=== PATIENT | female | born 1990 | race Hispanic/Latino ===

== ENCOUNTER 2018-02-21 12:39 | Inpatient (IN) | payer OTHER ==
[~2018-02-21] VITALS: Ht 157.5 cm; Wt 68.0 kg
[~2018-02-21 12:39] MED LIST: BACTROBAN15 GM TOP; CIPRO500 M1 PO; METFORMIN HCL500 M3 PO; PERCOCET 5-3251 EACH PO; VIBRAMYCIN100 MG PO
[2018-02-21 13:17] LABS: ABSOLUTE BASOPHIL COUNT 0 /CUMM (0.0-0.2); ABSOLUTE EOSINOPHIL COUNT 0 /CUMM (0.0-0.7); ABSOLUTE GRANULOCYTE CT 4.4 /CUMM (1.4-6.5); ABSOLUTE LYMPH COUNT 1.4 /CUMM (1.2-3.4); ABSOLUTE MONOCYTE COUNT 0.4 /CUMM (0.10-0.60); BASOPHIL % 0.4 % (0.0-2.0); EOSINOPHIL % 0.3 % (0-5); GRANULOCYTE % 69.5 % (42.2-75.2); HEMATOCRIT 29.9 % (37-47); MEAN CORPUSCULAR HGB 21.9 PG (27.0-31.0); MEAN CORPUSCULAR HGB CONC 32.3 G/DL (33.0-37.0); MEAN PLATELET VOLUME 7.8 FL (7.4-10.4); PLATELET COUNT 361 /CUMM (130-400); RBC DISTRIBUTION WIDTH 20.5 % (11.5-14.5); RED BLOOD CELL CT 4.41 /CUMM (4.20-5.40); WHITE BLOOD CELL COUNT 6.3 /CUMM (4.8-10.8)
[2018-02-21 13:34] LABS: MEAN CORPUSCULAR VOLUME 67.8 FL (81.0-99.0)
--- NOTE | 2018-02-21 14:40 | ED GENERAL ADULT ---
History of Present Illness General Chief Complaint: General Adult Stated Complaint: RIB/CHEST PAIN Source: patient Exam Limitations: no limitations (today a Ventolin. Basal cough) Vital Signs & Intake/Output Vital Signs & Intake/Output Vital Signs Date Time Temp Pulse Resp B/P B/P Pulse O2 O2 Flow FiO2 Mean Ox Delivery Rate 02/210 97.9 94 18 118/75 96 02/21 2220 99 Room Air 02/21 2207 99.0 70 17 111/663 100 Room Air 02/21 2044 98.2 66 18 106/63 99 Room Air 02/21 1658 99 02/21 1457 98.2 92 18 110/56 98 Room Air Room Air 02/21 1254 97.7 97 16 109/75 99 Room Air ED Intake and Output 02/22 0000 02/21 1200 Intake Total Output Total Balance Patient 150 lb Weight Weight Reported by Patient Measurement Method Allergies Coded Allergies: latex (HIVES, SWELLING, DYSPNEA 04/24/17) Reconcile Medications Metformin HCl 500 MG TABLET 1 TAB PO BID DM (Reported) Triage Note: PT STATES SHE IS HAVING PAIN IN HER LEFT SHOULDER INTO HER RIB CAGE. PT STATES INCREASED PAIN WHEN SHE BREATHS DEEP. PT IS NOT ON BC PILLS. PT DOES NOT REMEMBER INJURING HERSELF. PT STATES THIS BEGAN IN THE MORNING YESTERDAY BUT TODAY IT IS MUCH WORSE. Triage Nurses Notes Reviewed? yes Onset: Abrupt Duration: day(s): Timing: recent history : No Patient currently breastfeeds: No HPI: 02/21/18 3:30 PM 27-year-old female presents to the emergency department complaining of left sided pleuritic chest wall pain. According to the patient she's had left-sided pleuritic chest wall pain since . It is worse when she takes a deep breath. She does have a history of asthma. She states she is status post termination of and DC that was done at the end of January. Her urine test was positive. She denies any abdominal pain or vaginal bleeding. She is not on oral contraceptives. (Florentino Santos DO) Past History Travel History Traveled to [place] past 21 day No Medical History Any Pertinent Medical History? see below for history Neurological: NONE EENT: NONE Cardiovascular: NONE Respiratory: NONE Gastrointestinal: NONE Hepatic: NONE Renal: NONE Musculoskeletal: NONE Psychiatric: NONE Endocrine: NIDDM Surgical History Surgical History: non-contributory Psychosocial History What is your primary language Malaysian Tobacco Use: Never used ETOH Use: occasional use Illicit Drug Use: denies illicit drug use Family History Hx Contributory? No (Florentino Santos DO) Review of Systems Review of Systems Constitutional: Denies: fever. EENTM: Denies: visual changes. Respiratory: Denies: short of breath. Cardiovascular: Reports: see HPI. GI: Denies: abdominal pain. Genitourinary: Reports: no symptoms. Musculoskeletal: Reports: see HPI. Skin: Denies: rash. Neurological/Psychological: Reports: no symptoms. Hematologic/Endocrine: Reports: no symptoms. (Florentino Santos DO) Physical Exam Physical Exam General Appearance: well developed/nourished, alert, awake, anxious Head: atraumatic, normal appearance Eyes: Bilateral: normal appearance, PERRL, EOMI. Ears, Nose, Throat: normal pharynx, normal ENT inspection Neck: normal inspection, supple, full range of motion Respiratory: no respiratory distress, LEFT-SIDED CHEST WALL TENDERNESS Cardiovascular: regular rate/rhythm Peripheral Pulses: 4+ radial (R), 4+ radial (L) Gastrointestinal: soft, non-tender Rectal: heme negative stool Back: normal range of motion Extremities: no edema Neurologic/Psych: no motor/sensory deficits, awake, alert, oriented x 3 Skin: intact, normal color, warm/dry Core Measures ACS in differential dx? No CVA/TIA Diagnosis: No Sepsis Present: No Sepsis Focused Exam Completed? No (Florentino Santos DO) Progress Differential Diagnoses I considered the following diagnoses in my evaluation of the patient: [Pleurisy, costochondritis, pulmonary embolism, pneumothorax, pneumonia, asthma exacerbation] Plan of Care: Orders Procedure Date/time Status Nothing by Mouth 02/22 B Active Consistent Carbohydrate 1 02/21 D Complete Weight 02/21 2226 Active Vital Signs 02/21 2226 Active Teach/Educate 02/21 2226 Active Pain Treatment and Response 02/21 2226 Active Nutritional Intake, Monitor 02/21 2226 Active Isolation 02/21 2226 Active Intake & Output 02/21 2226 Active Patient Care Conference 02/21 2226 Active Activity/Ambulation 02/21 2226 Active ED Holding Orders 02/21 2058 Active Patient Data 02/21 2055 Active Saline Lock 02/21 2027 Active Misc Message 02/21 2027 Active ED Holding Orders 02/21 2027 Active Admit to inpatient 02/21 2027 Active Vital Signs 02/21 2027 Active Code Status 02/21 2027 Active PARTIAL THROMBOPLASTIN TIME 02/21 2010 Complete PROTHROMBIN TIME 02/21 2010 Complete Intake & Output 02/21 2006 Active Lab Add-on Test 02/21 2002 Active Add-on Test (ER Only) 02/21 1511 Active Add-on Test (ER Only) 02/21 1510 Active HUMAN BETA HCG TITRE 02/21 1303 Complete D-DIMER 02/21 1303 Complete B-TYPE NATRIURETIC PEP (BNP) 02/21 1303 Complete TROPONIN LEVEL 02/21 1259 Complete HUMAN BETA HCG SCREEN 02/21 1259 Complete COMPREHENSIVE METABOLIC PANEL 02/21 1259 Complete CBC WITHOUT DIFFERENTIAL 02/21 1259 Complete EKG 02/21 1240 Active FingerStick- Glucose 02/21 UNK Active MISSING MEDICATION FORM 02/21 UNK Active Current Medications Sig/Ashtyn Start time Last Medication Dose Stop Time Status Admin Insulin Aspart 0 TIDAC 02/22 0800 AC (NovoLOG) Apixaban 5 MG BID 02/21 2345 AC (Eliquis) Heparin Sodium 5,000 UNIT ONCE ONE 02/21 2100 CAN (Porcine) 02/21 2101 (Heparin Bolus) Laboratory Tests 02/21/18 2248: PT 12.1, INR 1.11, APTT 28 02/21/18 1303: Anion Gap 10, Estimated GFR > 60, BUN/Creatinine Ratio 15.7, Glucose 98, Calcium 9.3, Total Bilirubin 0.4, AST 17, ALT 19, Alkaline Phosphatase 63, Troponin I < 0.01, Cfh-C-Qtmmkukhhra Pept 50.7, Total Protein 7.7, Albumin 4.0, Globulin 3.7, Albumin/Globulin Ratio 1.1, Beta HCG, Quant 16.2, Total Beta HCG POSITIVE, D- Dimer High Sensitivty 637 H, CBC w Diff NO MAN DIFF REQ, RBC 4.41, MCV 67.8 L, MCH 21.9 L, MCHC 32.3 L, RDW 20.5 H, MPV 7.8, Gran % 69.5, Lymphocytes % 22.9 , Monocytes % 6.9, Eosinophils % 0.3, Basophils % 0.4, Absolute Granulocytes 4.4 , Absolute Lymphocytes 1.4, Absolute Monocytes 0.4, Absolute Eosinophils 0, Absolute Basophils 0 PATIENT: SAUL LOVELACE PRESENT AGE: 27 PATIENT ACCOUNT NO: [id number] : 90 LOCATION: [facility] ORDERING PHYSICIAN: Florentino Santos DO SERVICE DATE: 02/21/18 EXAM TYPE: CAT - CTA CHEST-PULMONARY EMBOLISM EXAMINATION: CT ANGIOGRAM OF THE CHEST WITH AND WITHOUT CONTRAST (CT PULMONARY ANGIOGRAM FOR PE) CLINICAL INFORMATION: Reason for Study:
Presumptive Dx: SOB, CP, ELEVATED DIMER
Signs Symptoms: + PREG SECONDAY TO RECENT TOP DONE END OF JANUARY
COMPARISON: None TECHNIQUE: Prior to contrast administration, noncontrast localization images were obtained. Subsequently, multidetector volumetric imaging was performed from the thoracic inlet to below the diaphragms following the administration of 80 mL Omnipaque 350 intravenous contrast. No contrast reaction reported. Sagittal, coronal, and MIP oblique sagittal reformatted images were obtained on the CT workstation, uploaded to PACS, and reviewed. Total exam dose-length product 258 mGy-cm. FINDINGS: QUALITY OF STUDY/CONTRAST BOLUS: Satisfactory PULMONARY ARTERIES: There is a moderate amount of clot present within the left lower lobe interlobar artery and distal branches in the posterior left lower lobe. No additional thrombus present. THORACIC AORTA: No aneurysm or dissection. LUNG: There is a focal area of pleural-based consolidation in the lingula which may reflect atelectasis. PLEURA: There is a small left pleural effusion. MEDIASTINUM: Normal heart size. No pericardial effusion. No hilar or mediastinal lymphadenopathy. No evidence of septal bowing or right heart strain. CHEST WALL/AXILLA: No axillary or internal mammary lymphadenopathy. OSSEOUS STRUCTURES: No acute or suspicious osseous abnormality. UPPER ABDOMEN: Unremarkable. No reflux of contrast into the hepatic veins to suggest elevated right heart pressures. IMPRESSION: Pulmonary embolism with clot present within the left lower lobe interlobar artery left lower lobe and distal posterior branches. Small left pleural effusion. Focal opacity pleural-based lingula likely atelectasis VTE: positive This critical result was discussed with Florentino mabry at approximately 7: 25 PM on 02/21/2018 and it was ascertained that the content and urgency of the report was understood at the time of direct communication. DICTATED BY: Bravo Salinas MD DATE/TIME DICTATED:02/21/181910 MAINTENANCE AND CUSTODIAN SUPERVISOR:ABNER DATE/TIME TRANSCRIBED:02/21/181910 CONFIDENTIAL, DO NOT COPY WITHOUT APPROPRIATE AUTHORIZATION. <Electronically signed in Other Vendor System> SIGNED BY: Bravo Salinas MD 02/21 Initial ED EKG: NSR, nonspecific ST T wave chg (Florentino Santos DO) Diagnostic Imaging: Viewed by Me: CT Scan. Discussed w/RAD: CT Scan. Radiology Impression: PATIENT: SAUL LOVELACE PRESENT AGE: 27 PATIENT ACCOUNT NO: [id number] : 90 LOCATION: [facility] ORDERING PHYSICIAN: Florentino Santos DO SERVICE DATE: 02/21/18 EXAM TYPE: CAT - CTA CHEST-PULMONARY EMBOLISM EXAMINATION: CT ANGIOGRAM OF THE CHEST WITH AND WITHOUT CONTRAST (CT PULMONARY ANGIOGRAM FOR PE) CLINICAL INFORMATION: Reason for Study:
Presumptive Dx: SOB, CP, ELEVATED DIMER
Signs Symptoms: + PREG SECONDAY TO RECENT TOP DONE END OF JANUARY
COMPARISON: None TECHNIQUE: Prior to contrast administration, noncontrast localization images were obtained. Subsequently, multidetector volumetric imaging was performed from the thoracic inlet to below the diaphragms following the administration of 80 mL Omnipaque 350 intravenous contrast. No contrast reaction reported. Sagittal, coronal, and MIP oblique sagittal reformatted images were obtained on the CT workstation, uploaded to PACS, and reviewed. Total exam dose-length product 258 mGy-cm. FINDINGS: QUALITY OF STUDY/CONTRAST BOLUS: Satisfactory PULMONARY ARTERIES: There is a moderate amount of clot present within the left lower lobe interlobar artery and distal branches in the posterior left lower lobe. No additional thrombus present. THORACIC AORTA: No aneurysm or dissection. LUNG: There is a focal area of pleural-based consolidation in the lingula which may reflect atelectasis. PLEURA: There is a small left pleural effusion. MEDIASTINUM: Normal heart size. No pericardial effusion. No hilar or mediastinal lymphadenopathy. No evidence of septal bowing or right heart strain. CHEST WALL/AXILLA: No axillary or internal mammary lymphadenopathy. OSSEOUS STRUCTURES: No acute or suspicious osseous abnormality. UPPER ABDOMEN: Unremarkable. No reflux of contrast into the hepatic veins to suggest elevated right heart pressures. IMPRESSION: Pulmonary embolism with clot present within the left lower lobe interlobar artery left lower lobe and distal posterior branches. Small left pleural effusion. Focal opacity pleural-based lingula likely atelectasis VTE: positive This critical result was discussed with Florentino mabry at approximately 7: 25 PM on 2017 and it was ascertained that the content and urgency of the report was understood at the time of direct communication. DICTATED BY: Bravo Salinas MD DATE/TIME DICTATED:02/21/181910 MAINTENANCE AND CUSTODIAN SUPERVISOR:ABNER DATE/TIME TRANSCRIBED:02/21/181910 CONFIDENTIAL, DO NOT COPY WITHOUT APPROPRIATE AUTHORIZATION. <Electronically signed in Other Vendor System> SIGNED BY: Bravo Salinas MD 02/21/181928 (Jaylin LIVE,Rafiq Gonzalez) Departure Departure Disposition: STILL A PATIENT Condition: Stable Clinical Impression Primary Impression: Pulmonary embolism Referrals: Unknown (PCP/Family) Departure Forms: Customer Survey General Discharge Information Admission Note Spoke With: Alonso Flores MD Documentation of Exam: Documentation of any treatments & extenuating circumstances including Concerns Regarding Discharge (functional status, medication knowledge or non-compliance, living conditions, etc.) that warrant an admission rather than observation: [The patient needs admission for IV pain medication, anticoagulation, pulmonary consultation] (Florentino Santos DO) Departure Comments pt admitted prior to my taking over care of patient. (Jaylin LIVE,Rafiq Gonzalez) Critical Care Note Critical Care Note Critical Care Time: non-applicable (Florentino Santos DO) ED Attending Observation Initial Observation Note: I have seen and personally examined SAUL LOVELACE on 02/21/18 at 2048. I agree with the current emergency department documentation. The disposition (admission or discharge) is uncertain at this time, she needs a period of observation for the following reason(s): The ED Nurse caring for this patient has been personally informed as to what the patient is being observed for. (Florentino Santos DO)
--- NOTE | 2018-02-21 18:28 | ULTRASOUND REPORT ---
EXAMINATION: US TRANSVAGINAL CLINICAL INFORMATION: History of dilatation and curettage. Recent vaginal bleeding. Evaluate for retained products of conception. COMPARISON: None TECHNIQUE: Sonographic imaging of the pelvis was performed using transabdominal and transvaginal transducers. FINDINGS: The uterus, which is slightly retroflexed, measures 6.6 cm long, 5.7 cm AP and 6.3 cm transverse. The myometrial echotexture is normal. No evidence of uterine leiomyoma. The endometrium has a normal appearance; it measures up to 7-8 mm AP. No endometrial mass or fluid collection. The cervical canal is normal and measures 3 cm in length. The ovaries are normal. The right ovary measures 2.9 x 2 x 2.8 cm, volume of 8.2 mL. The left ovary measures 2 x 2.9 x 2 cm, volume of 6.3 mL.. Color Doppler images show presence of arterial flow within each ovary. No free fluid in the pelvic cul-de-sac. IMPRESSION: The uterus and ovaries have a normal appearance. No evidence of retained products of conception.
--- NOTE | 2018-02-21 19:29 | CT SCAN REPORT ---
EXAMINATION: CT ANGIOGRAM OF THE CHEST WITH AND WITHOUT CONTRAST (CT PULMONARY ANGIOGRAM FOR PE) CLINICAL INFORMATION: Reason for Study:
Presumptive Dx: SOB, CP, ELEVATED DIMER
Signs Symptoms: + PREG SECONDAY TO RECENT TOP DONE END OF JANUARY
COMPARISON: None TECHNIQUE: Prior to contrast administration, noncontrast localization images were obtained. Subsequently, multidetector volumetric imaging was performed from the thoracic inlet to below the diaphragms following the administration of 80 mL Omnipaque 350 intravenous contrast. No contrast reaction reported. Sagittal, coronal, and MIP oblique sagittal reformatted images were obtained on the CT workstation, uploaded to PACS, and reviewed. Total exam dose-length product 258 mGy-cm. FINDINGS: QUALITY OF STUDY/CONTRAST BOLUS: Satisfactory PULMONARY ARTERIES: There is a moderate amount of clot present within the left lower lobe interlobar artery and distal branches in the posterior left lower lobe. No additional thrombus present. THORACIC AORTA: No aneurysm or dissection. LUNG: There is a focal area of pleural-based consolidation in the lingula which may reflect atelectasis. PLEURA: There is a small left pleural effusion. MEDIASTINUM: Normal heart size. No pericardial effusion. No hilar or mediastinal lymphadenopathy. No evidence of septal bowing or right heart strain. CHEST WALL/AXILLA: No axillary or internal mammary lymphadenopathy. OSSEOUS STRUCTURES: No acute or suspicious osseous abnormality. UPPER ABDOMEN: Unremarkable. No reflux of contrast into the hepatic veins to suggest elevated right heart pressures. IMPRESSION: Pulmonary embolism with clot present within the left lower lobe interlobar artery left lower lobe and distal posterior branches. Small left pleural effusion. Focal opacity pleural-based lingula likely atelectasis VTE: positive This critical result was discussed with Florentino mabry at approximately 7: 25 PM on 02/21/2018 and it was ascertained that the content and urgency of the report was understood at the time of direct communication.
--- NOTE | 2018-02-21 20:56 | History & Physical ---
Farhad Zelaya 02/21/182054: General Information and HPI History of Present Illness: Ms. Coley is a 27-year-old F, A2 with a PMH of asthma, NIDDM, miscarriage at the age of 17 and a recent D&C at 10 weeks gestation who presents to the ED with left chest pain for 2 days. Patient reports yesterday she felt left-sided chest pain that wrapped underneath her L breast, 9.5/10 in severity. Her pain is exacerbated by deep breathing. She recorded a Tmax of 101. She also reports vaginal bleeding for the last 4 days that required pads every 2 hours. She had an elective dilatation and curettage done 2-3 weeks ago at 10 weeks gestation that did not require any pharmacological treatment. Subsequently she had limited movement for the following 1-1/2 weeks. She saw her DIRECTOR OF GRANTS-Dr. Coffman in [place] for a follow-up appointment with no noted complications. 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 She is currently not on oral contraceptives but use them as a teenager for menses regulation. She denies recent travel, sick contacts, calf tenderness, nausea, vomiting, abdominal pain, lightheadedness, palpitations, urinary or bowel symptoms. In the ED she received IV morphine and 1L NS IVF Allergies/Medications Allergies: Coded Allergies: latex (HIVES, SWELLING, DYSPNEA 04/24/17) Home Med list Metformin HCl 500 MG TABLET 1 TAB PO BID DM (Reported) Past History Travel History Traveled to [place] past 21 day No Medical History Neurological: NONE EENT: NONE Cardiovascular: NONE Respiratory: NONE Gastrointestinal: NONE Hepatic: NONE Renal: NONE Musculoskeletal: NONE Psychiatric: NONE Endocrine: NIDDM Surgical History Surgical History: non-contributory Past Family/Social History Psychosocial History ETOH Use: occasional use Illicit Drug Use: denies illicit drug use Review of Systems Review of Systems Constitutional: Reports: see HPI. Exam & Diagnostic Data Last 24 Hrs of Vital Signs/I&O Vital Signs Date Time Temp Pulse Resp B/P B/P Pulse O2 O2 Flow FiO2 Mean Ox Delivery Rate 02/22 0654 97.8 55 18 112/50 100 Room Air 02/22 0000 Room Air 02/21 2230 97.9 94 18 118/75 96 02/21 2220 99 Room Air 02/21 2207 99.0 70 17 111/663 100 Room Air 02/21 2044 98.2 66 18 106/63 99 Room Air 02/21 1658 99 02/21 1457 98.2 92 18 110/56 98 Room Air Room Air 02/21 1254 97.7 97 16 109/75 99 Room Air Intake & Output 02/22 0800 02/22 0000 02/21 1600 Intake Total 240 Output Total Balance 240 Intake, Oral 240 Patient 150 lb 150 lb Weight Weight Reported by Patient Measurement Method Physical Exam General Appearance Alert, Oriented X3, Cooperative, No Acute Distress HEENT Atraumatic, PERRLA, EOMI, Mucous Membr. moist/pink Cardiovascular Regular Rate, Normal S1, Normal S2 Lungs Decreased breath sounds Abdomen Normal Bowel Sounds, Soft, No Tenderness Extremities No Edema Vascular Normal Pulses Last 24 Hrs of Labs/Timothy: Laboratory Tests 02/21/18 2248: PT 12.1, INR 1.11, APTT 28 02/21/18 1303: Anion Gap 10, Estimated GFR > 60, BUN/Creatinine Ratio 15.7, Glucose 98, Calcium 9.3, Total Bilirubin 0.4, AST 17, ALT 19, Alkaline Phosphatase 63, Troponin I < 0.01, Lfp-X-Xopdtfpcedb Pept 50.7, Total Protein 7.7, Albumin 4.0, Globulin 3.7, Albumin/Globulin Ratio 1.1, Beta HCG, Quant 16.2, Total Beta HCG POSITIVE, D- Dimer High Sensitivty 637 H, CBC w Diff NO MAN DIFF REQ, RBC 4.41, MCV 67.8 L, MCH 21.9 L, MCHC 32.3 L, RDW 20.5 H, MPV 7.8, Gran % 69.5, Lymphocytes % 22.9 , Monocytes % 6.9, Eosinophils % 0.3, Basophils % 0.4, Absolute Granulocytes 4.4 , Absolute Lymphocytes 1.4, Absolute Monocytes 0.4, Absolute Eosinophils 0, Absolute Basophils 0 Diagnostic Data EKG Results SR, HR 87, QTc 433 Assessment/Plan Assessment: Ms. Coley is a 27-year-old F, A2 with a PMH of asthma, NIDDM, miscarriage at the age of 17 and a recent D&C at 10 weeks gestation who presents to the ED with left chest pain for 2 days. CTA revealed a left lower lobe and distal posterior branches pulmonary embolism with small left pleural effusion #Provoked LLL PE in the setting of recent and immobility #Positive HCG with no retained products of conception on TVUS #Anemia Plan: Admit to general med for further evaluation and management Based on her PESI score she has a very low risk of mortality (0-1.6% 30 day mortality) We will start her on apixaban 5 mg BID Iron supplementation Accu-Cheks and NovoLog sliding scale Repeat beta-hCG Ferritin, Fe, TIBC PT/INR, PTT Monitor H&H Pain: Oxycodone/acetaminophen, ibuprofen, acetaminophen Diet: Diabetic DVT ppx: Apixaban Code: Full As Ranked By This Provider Problem List: 1. Pulmonary embolism Core Measures/Misc (05/26) Acute Coronary Syndrome ACS Diagnosis: No Congestive Heart Failure Congestive Heart Failure Diagnosis No Cerebrovascular Accident CVA/TIA Diagnosis: No VTE (View Protocol) VTE Risk Factors / No Mechanical VTE Prophylaxis d/t N/A MechProphylax Ordered No VTE Pharm Prophylaxis d/t NA PharmProphylax ordered Sepsis (View protocol) Sepsis Present: No If YES complete Sepsis Event Note If YES complete Sepsis Event Note [facility] 02/22/18 0136: Core Measures/Misc (05/26) Sepsis (View protocol) If YES complete Sepsis Event Note If YES complete Sepsis Event Note Resident Review Statement Resident Statement: examined this patient, discussed with agronomy internship, agreed with agronomy internship Other Findings: This is a 27-year-old female with past medical history significant for asthma, type 2 diabetes diagnosed at age 16, who comes in for chief complaint of left sided chest pain. She says that the pain came on suddenly yesterday and is a 9.5 out of 10 stabbing pain that gets worse with deep inspiration. She denies any trauma or similar symptoms previously. She does endorse MAXIMUM TEMPERATURE 101 with chills at home. Denies nausea vomiting abdominal pain or lower extremity swelling. She had a D&C procedure done about 3 weeks ago. At that time she was 10 weeks . She states she took the week after the D&C "to rest." However she states that she was not entirely bedridden. In the past 2 weeks she has largely gone back to her usual routine. She has had vaginal bleeding the last 4 days. She states that it seems like her regular menses and she changes pads every 2 hours. She does not use tampons. She saw her OB 2 weeks ago and was apparently told that she was in good health. Denies any hormonal contraception since she was a teenager. Social history pertinent for occasional use of wine, no smoking or drugs. Surgical history pertinent for 4 C-sections and D&C in 2006 and a D&C 3 weeks ago. She has allergies to latex. Her only meds are albuterol and metformin. She occasionally uses ibuprofen for pain. She states that she has always been anemic but cannot offer further details. See above for physical exam Vitals: 97.7, 96-66, 17, 106/63-118/75, 99% on room air. Hemoglobin 9.6, hematocrit 29.9, MCV 67. D-dimer 637. Normal PT and PTT. Quantitative hCG 16.2. test positive. Nml BNP. Nml LFT. Nml troponin. Trans-vaginal ultrasound shows no evidence of retained conceptus. CTA shows pulmonary embolus with clot present in the left lower lobe interlobar artery left lower lobe and distal posterior branches and a small left pleural effusion. There is no reflux of contrast in the hepatic veins pericardial effusion, or evidence of septal bowing or right heart strain ASSESSMENT: This is a 27 yo female with PMH of DM and asthma, who had recent D&C procedure 3 wks ago, who comes in with CC of pleuritic chest pain and found to have mod sized pulmonary embolus on CAT scan. Her PESI score is 27 placing her in Class I, very low risk; 0.1-1.6% 30 day mortality. Most likely etiology of PE is recent surgical procedure and terminaton of with elevated lvl of estrogen, endothelial damage and infusion of prostaglandins to aid in procedure. Would likely label this a provoked episode, though she has had 5 normal pregnancies without any hypercoag complicaitons. PLAN: 1. PE: Given her very low PESI score, start patient on DOAC; no acute intervention planned. * Eliquis 10 mg BID * Check PT and PTT * Consider pulmonology input * Follow-up outpatient * We will defer hypercoagulability workup at this time 2. Anemia: Patient's hemoglobin 9.6 and hematocrit 29.9. She states that she is on her period at this time. Likely some blood loss from the D&C procedure as well. She states that she is "always anemic." She does have Mediterranean background and given MCV 67, differential includes iron deficiency anemia, thalassemia, or hemolysis. * Iron studies * Start iron supplementation depending on studies 3. Diabetes: * Consistent carb diet * Fingerstick * Regular Insulin sliding scale * Hold metformin 4. Recent D&C: * Follow-up outpatient Full code Anthony for prophylaxis Consistent carb diet Alonso Flores 02/22/18 0429: Core Measures/Misc (05/26) Sepsis (View protocol) If YES complete Sepsis Event Note If YES complete Sepsis Event Note Attending MD Review Statement Attending Statement Attending MD Statement: examined this patient, discuss w/resident/PA/TECHNOLOGY COORDINATOR, agreed w/resident/PA/TECHNOLOGY COORDINATOR, reviewed EMR data (avail), reviewed images, amended to note Attending Assessment/Plan: CC: Left sided chest pain PMH: DM on metformin patient came to ER for left-sided chest pain that started yesterday at rest, radiating to her left shoulder, associated with deep breathing, no trauma, started at rest. She Denies any palpitation, dizziness, double vision, blurry vision. She recently underwent elective D&C for . After the procedure she was resting at home for at least one and half week but did not notice any cough pain, swelling or the redness. Denies any oral contraceptive use. Patient also complains of excessive vaginal bleeding since last 4 days. Vitals: Temperature 97.7, pulse 97, RR 16, blood pressure 110/56, saturating 99% on room air On exam: A O 3, cooperative, no acute distress, neck supple, JVD normal, no lymphadenopathy, mucosa moist, no focal neurological deficit, no dependent edema , no obvious skin rashes or inflammation CVS: S1-S2, RRR. RS: Clear to auscultate bilaterally. Abdomen: Soft, NT, ND, bowel sounds present. CTA chest: Pulmonary embolism with clot present within the left lower lobe interlobar artery left lower lobe and distal posterior branches. Small left pleural effusion. Focal opacity pleural-based lingula likely atelectasis Transvaginal ultrasound: The uterus and ovaries have a normal appearance. No evidence of retained products of conception. Assessment and plan 27-year-old female with past medical history significant for diabetes came to ER for a one-day duration of chest pain left-sided radiating to left shoulder. Her d-dimer was elevated. Examination unremarkable but her beta hCG was positive so quantitative analysis was obtained which is unremarkable. She also underwent transvaginal ultrasound to exclude any after that she underwent CTA and was found to have pulmonary embolism. This could be provoked as she was taking rest after her recent dilatation and curettage procedure and mostly sedentary for one and half week. Given her low risk of PE, no evidence of cardiac strain we will continue oral Eliquis needs outpatient follow-up. Of note patient also has excessive vaginal bleeding since last 4 days. No history suggestive of lupus or antiphospholipid syndrome. + Left lower lobe interlobar artery pulmonary embolism + Anemia probably secondary to postprocedure and excessive current vaginal + History of DM - Admit to general medicine - Adequate pain control - Continue Eliquis - Continue sliding scale insulin while in hospital - Check PT/PTT INR - Check beta hCG titers tomorrow morning to trend down in appropriate direction - Iron studies, TIBC, ferritin, reticulocyte count - Continue iron supplementation
[2018-02-21 22:30] VITALS: BP 118/75
[2018-02-21 23:07] LABS: PT 12.1 SEC (9.4-12.5); PTT 28 SEC (25-37)
--- NOTE | 2018-02-22 04:43 | Admission Certification ---
Admission Certification Certification Statement - As attending physician, I certify that at the time of - admission, based on clinical presentation, severity of - symptoms, need for further diagnostic testing and - therapeutic interventions, and risk of adverse outcomes - without in-hospital treatment, in my clinical assessment, - this patient requires an acute hospital stay for a minimum - of two nights or longer. I have also considered psychsocial - factors such as support system, advanced age, financial - issues, cognitive issues, and failed out-patient treatments, - past re-admission history, safety of patient, and lack of - compliance as applicable. Specific rationale supporting this admission is: Pulmonary embolism
[2018-02-22 06:54] VITALS: BP 112/50
[2018-02-22 08:29] LABS: PTT 32 SEC (25-37)
--- NOTE | 2018-02-22 08:41 | PN- Housestaff ---
Brian LIVE,Jose Enrique 02/22/18 0840: Subjective Follow-up For: pulmonary embolism acute blood loss anemia Subjective: patient complains of a pleuritic left sided chest pain Review of Systems Constitutional: Reports: see HPI. Objective Last 24 Hrs of Vital Signs/I&O Vital Signs Date Time Temp Pulse Resp B/P B/P Pulse O2 O2 Flow FiO2 Mean Ox Delivery Rate 02/22 1100 Room Air 02/22 0800 96 Room Air 02/22 0654 97.8 55 18 112/50 100 Room Air 02/22 0000 Room Air 02/21 2230 97.9 94 18 118/75 96 02/21 2220 99 Room Air 02/21 2207 99.0 70 17 111/663 100 Room Air 02/21 2044 98.2 66 18 106/63 99 Room Air 02/21 1658 99 02/21 1457 98.2 92 18 110/56 98 Room Air Room Air Intake & Output 02/22 1600 02/22 0800 02/22 0000 Intake Total 240 Output Total Balance 240 Intake, Oral 240 Patient 68.039 kg Weight Physical Exam General Appearance: Alert, Oriented X3, Cooperative, No Acute Distress Cardiovascular: Regular Rate, Normal S1, Normal S2, No Murmurs Lungs: Clear to Auscultation, Normal Air Movement Abdomen: Normal Bowel Sounds, Soft, No Tenderness, No Masses Extremities: No Clubbing, No Cyanosis, No Edema, Normal Pulses Current Medications: Current Medications Sig/Ashtyn Start time Last Medication Dose Route Stop Time Status Admin Acetaminophen 650 MG Q6P PRN 02/22 0015 AC PO Albuterol Sulfate 3 ML BID 02/22 2100 AC 02/22 INH 1100 Albuterol Sulfate 3 ML ONCE ONE 02/21 1630 DC 02/21 INH 02/21 1631 1648 Apixaban 10 MG BID 02/22 2100 AC PO Apixaban 5 MG BID 02/21 2345 DC 02/22 PO 0851 Ferrous Sulfate 325 MG DAILY 02/22 0900 AC 02/22 PO 0851 Heparin Sodium 0 .STK-MED ONE 02/21 2105 DC (Porcine) .ROUTE Heparin Sodium 5,000 UNIT ONCE ONE 02/21 2100 CAN (Porcine) IV 02/21 210 Heparin Sodium 25,000 UNIT Q24H 02/21 2100 DC (Porcine) IV Sodium Chloride 500 ML Ibuprofen 600 MG Q6P PRN 02/22 0015 AC 02/22 PO 0900 Ibuprofen 0 .STK-MED ONE 02/21 1505 DC PO Insulin Aspart 0 TIDAC 02/22 0800 AC SC Ipratropium [place] 2.5 ML ONCE ONE 02/21 1630 DC 02/21 INH 02/21 1631 1648 Ketorolac 15 MG ONCE ONE 02/21 2245 DC 02/21 Tromethamine IV 02/21 2246 2305 Morphine Sulfate 0 .STK-MED ONE 02/21 2106 DC .ROUTE Morphine Sulfate 4 MG ONCE ONE 02/21 2100 DC 02/21 IV 02/21 2101 2111 Ondansetron HCl 4 MG Q6P PRN 02/22 0930 AC IV Oxycodone/ 2 TAB Q6P PRN 02/22 0015 AC 02/22 Acetaminophen PO 1133 Oxycodone/ 0 .STK-MED ONE 02/21 1654 DC Acetaminophen PO Oxycodone/ 1 TAB ONCE ONE 02/21 1645 DC 02/21 Acetaminophen PO 02/21 1646 1656 Sodium Chloride 1,000 ML BOLUS ONE 02/21 1630 DC 02/21 IV 02/21 1729 1637 Last 24 Hrs of Lab/Timothy Results Last 24 Hrs of Labs/Mics: Laboratory Tests 02/22/18 0913: Beta HCG, Quant 13.4 02/22/18 0635: Anion Gap 12, Estimated GFR > 60, BUN/Creatinine Ratio 12.9, Iron 27 L, TIBC 418, Ferritin 4.8 L, PT 15.0 H, INR 1.37 H, APTT 32, CBC w Diff NO MAN DIFF REQ, RBC 3.90 L, MCV 68.3 L, MCH 21.8 L, MCHC 31.9 L, RDW 20.3 H, MPV 8.4, Gran % 63.3, Lymphocytes % 27.9, Monocytes % 7.6, Eosinophils % 0.6, Basophils % 0.6, Absolute Granulocytes 5.1, Absolute Lymphocytes 2.3, Absolute Monocytes 0.6 , Absolute Eosinophils 0, Absolute Basophils 0, Retic Count 2.67 H 02/21/182247: PT 12.1, INR 1.11, APTT 28 Assessment/Plan Assessment: 27 year old female A2 with a PMH of asthma, NIDDM, miscarriage at the age of 17 and a recent D+C at 10 weeks gestation who presents to the ED with left sided pleuritic chest pain for 2 days. CTA revealed a left lower lobe and distal posterior branches pulmonary embolism with small left pleural effusion. Provoked LLL PE in the setting of recent and immobility Eliquis 10mg PO BID x 7 days then 5mg PO BID Outpatient hematology referral for hypercoagulable workup Check bilateral lower extremity venous doppler ultrasound Oral analgesics for pleuritic chest pain TRC evaluation for history of asthma Positive HCG: No retained products of conception on TVUS HCG trending down OBGYN consultation Anemia: microcytic Likely acute blood loss anemia from recent surgery and chronic iron deficiency anemia Ferritin low, start oral iron supplementation Trend CBC with initiation of anticoagulation DM: Accuchecks TIDAC Novolog sliding scale insulin Diabetic diet DVT ppx-on eliquis Full code Problem List: 1. Pulmonary embolism 2. Chest wall pain Pain Ratin Pain Location: left chest Pain Goal: Pain 4 or less Pain Plan: prn Tomorrow's Labs & Rationales: cbc Maciej Carranza MD 02/22/18 1339: Attending MD Review Statement Attending Statement Attending MD Statement: examined this patient, discuss w/resident/PA/HEAD BOYS TENNIS COACH, agreed w/resident/PA/HEAD BOYS TENNIS COACH, discussed with family, reviewed EMR data (avail), discussed with nursing, discussed with case mgmt, reviewed images, amended to note Attending Assessment/Plan: Impression 27 year old woman * PE - LLL interlobar artery and LLL distal posterior branches * recent elective termination of , hx of miscarriage * anemia Plan -knitted goods shaper consultation, continued anemia/bleeding -continue with eliquis, dose adjusted to 10mg po bid x 7 days then needs to be on 5mg po bid -PFTs as outpt, hx of asthma, can follow up with myself -LE dopplers -outpatient hypercoagulable panel will be obtained and a hematology evaluation on an outpatient basis -IST - Incentive Spirometry -TRC/Nebs -pleuritic chest pain is controlled with percocet
[2018-02-22 08:56] LABS: ABSOLUTE BASOPHIL COUNT 0 /CUMM (0.0-0.2); ABSOLUTE EOSINOPHIL COUNT 0 /CUMM (0.0-0.7); ABSOLUTE GRANULOCYTE CT 5.1 /CUMM (1.4-6.5); ABSOLUTE LYMPH COUNT 2.3 /CUMM (1.2-3.4); ABSOLUTE MONOCYTE COUNT 0.6 /CUMM (0.10-0.60); BASOPHIL % 0.6 % (0.0-2.0); EOSINOPHIL % 0.6 % (0-5); GRANULOCYTE % 63.3 % (42.2-75.2); HEMATOCRIT 26.6 % (37-47); MEAN CORPUSCULAR HGB 21.8 PG (27.0-31.0); MEAN CORPUSCULAR HGB CONC 31.9 G/DL (33.0-37.0); MEAN CORPUSCULAR VOLUME 68.3 FL (81.0-99.0); MEAN PLATELET VOLUME 8.4 FL (7.4-10.4); PLATELET COUNT 329 /CUMM (130-400); RBC DISTRIBUTION WIDTH 20.3 % (11.5-14.5); WHITE BLOOD CELL COUNT 8.1 /CUMM (4.8-10.8)
--- NOTE | 2018-02-22 14:21 | ULTRASOUND REPORT ---
EXAMINATION: US TRIPLEX OF LOWER EXTREMITIES, BILATERAL CLINICAL INFORMATION: Postoperative D\T\C, PE on CTA COMPARISON: None TECHNIQUE: Color-flow triplex imaging with spectral analysis and compression Doppler were performed on the lower extremities. FINDINGS: Respiratory variation, normal compression and augmented flow are noted throughout the lower extremities. The visualized common femoral vein, superficial femoral vein, profunda femoral vein, popliteal vein and midcalf peroneal and posterior tibial venous segments show no evidence of deep venous thrombosis. There is a left popliteal fossa fluid collection that measures 2.6 x 0.5 x 1.0 cm most consistent with a Rowley's cyst. IMPRESSION: No evidence of deep venous thrombosis involving the bilateral lower extremities.
[2018-02-22 14:50] VITALS: BP 99/55
[2018-02-22 21:44] VITALS: BP 101/51
[2018-02-23 01:10] VITALS: BP 124/76
[2018-02-23 06:40] VITALS: BP 100/56
[2018-02-23 08:54] LABS: ABSOLUTE BASOPHIL COUNT 0 /CUMM (0.0-0.2); ABSOLUTE EOSINOPHIL COUNT 0 /CUMM (0.0-0.7); ABSOLUTE GRANULOCYTE CT 3.7 /CUMM (1.4-6.5); ABSOLUTE LYMPH COUNT 2.1 /CUMM (1.2-3.4); ABSOLUTE MONOCYTE COUNT 0.5 /CUMM (0.10-0.60); BASOPHIL % 0.7 % (0.0-2.0); EOSINOPHIL % 0.4 % (0-5); GRANULOCYTE % 57.4 % (42.2-75.2); HEMATOCRIT 25.1 % (37-47); MEAN CORPUSCULAR HGB 21.6 PG (27.0-31.0); MEAN CORPUSCULAR HGB CONC 31.9 G/DL (33.0-37.0); MEAN CORPUSCULAR VOLUME 67.8 FL (81.0-99.0); MEAN PLATELET VOLUME 8.1 FL (7.4-10.4); PLATELET COUNT 299 /CUMM (130-400); RBC DISTRIBUTION WIDTH 19.9 % (11.5-14.5); WHITE BLOOD CELL COUNT 6.4 /CUMM (4.8-10.8)
--- NOTE | 2018-02-23 09:43 | PN- Housestaff ---
Kelsea LIVE,Blaire 02/23/18 0941: Subjective Follow-up For: pulmonary embolism acute blood loss anemia s/p D&C Subjective: Patient seen and examined. Patient complains of pain with deep breathing. Mostly along left side of chest and along back. Reports breathing treatments and pain meds help the pain. No acute events overnight. Review of Systems Constitutional: Reports: see HPI. Objective Last 24 Hrs of Vital Signs/I&O Vital Signs Date Time Temp Pulse Resp B/P B/P Pulse O2 O2 Flow FiO2 Mean Ox Delivery Rate 02/23 0640 98.4 87 16 100/56 97 Room Air 02/23 0111 95 Room Air 02/23 0110 98.1 96 18 124/76 95 Room Air 02/22 2144 98.8 90 18 101/51 94 02/22 1840 99 Room Air 02/22 1450 97.9 80 18 99/55 80 02/22 1100 Room Air Intake & Output 02/23 1600 02/23 0800 02/23 0000 Intake Total 300 200 Output Total Balance 300 200 Intake, Oral 300 200 Physical Exam General Appearance: Alert, Oriented X3, Cooperative, No Acute Distress Skin Temp/Moisture Exam: Warm/Dry HEENT: Atraumatic, Mucous Membr. moist/pink Cardiovascular: Regular Rate, Normal S1, Normal S2 Lungs: Clear to Auscultation, Normal Air Movement Abdomen: Normal Bowel Sounds, Soft, No Tenderness Neurological: Normal Speech, Cranial Nerves 3-12 NL Current Medications: Current Medications Sig/Ashtyn Start time Last Medication Dose Route Stop Time Status Admin Acetaminophen 650 MG Q6P PRN 02/22 0015 AC PO Albuterol Sulfate 3 ML BID 02/22 2100 AC 02/23 INH 0110 Apixaban 10 MG BID 02/22 2100 AC 02/23 PO 0844 Apixaban 5 MG BID 02/21 2345 DC 02/22 PO 0851 Ferrous Sulfate 325 MG DAILY 02/22 0900 AC 02/23 PO 0844 Ibuprofen 600 MG Q6P PRN 02/22 0015 AC 02/22 PO 1844 Insulin Aspart 0 TIDAC 02/22 0800 AC SC Ondansetron HCl 4 MG Q6P PRN 02/22 0930 AC IV Oxycodone/ 2 TAB Q6P PRN 02/22 0015 AC 02/23 Acetaminophen PO 0902 Last 24 Hrs of Lab/Timothy Results Last 24 Hrs of Labs/Mics: Laboratory Tests 02/23/18 0700: CBC w Diff NO MAN DIFF REQ, RBC 3.70 L, MCV 67.8 L, MCH 21.6 L, MCHC 31.9 L, RDW 19.9 H, MPV 8.1, Gran % 57.4, Lymphocytes % 32.9, Monocytes % 8.6, Eosinophils % 0.4, Basophils % 0.7, Absolute Granulocytes 3.7, Absolute Lymphocytes 2.1, Absolute Monocytes 0.5, Absolute Eosinophils 0, Absolute Basophils 0 Assessment/Plan Assessment: 27 year old female A2 with a PMH of asthma, NIDDM, miscarriage at the age of 17 and a recent D+C at 10 weeks gestation who presents to the ED with left sided pleuritic chest pain for 2 days. CTA revealed a left lower lobe and distal posterior branches pulmonary embolism with small left pleural effusion. Provoked LLL PE in the setting of recent and immobility Eliquis 10mg PO BID x 7 days then 5mg PO BID Outpatient hematology referral for hypercoagulable workup Check bilateral lower extremity venous doppler ultrasound - negative Oral analgesics for pleuritic chest pain TRC evaluation for history of asthma Positive HCG: No retained products of conception on TVUS HCG trending down OBGYN consultated. Follow up outpatient. Anemia: microcytic Likely acute blood loss anemia from recent surgery and chronic iron deficiency anemia H/H has slowly been declining. Today is 825. Will repeat in AM. Ferritin low, start oral iron supplementation Trend CBC with initiation of anticoagulation DM: Accuchecks TIDAC Novolog sliding scale insulin Diabetic diet DVT ppx-on eliquis Full code Problem List: 1. Pulmonary embolism Pain Ratin Pain Location: left chest wall Pain Goal: Pain 7 or less Pain Plan: percocet motrin tylenol Tomorrow's Labs & Rationales: cbc- anemia Maciej Carranza MD 02/23/18 1219: Attending MD Review Statement Attending Statement Attending MD Statement: examined this patient, discuss w/resident/PA/VENDING SUPERVISOR, agreed w/resident/PA/VENDING SUPERVISOR, discussed with family, reviewed EMR data (avail), discussed with nursing, discussed with case mgmt, reviewed images, amended to note Attending Assessment/Plan: Impression 27 year old woman * PE - LLL interlobar artery and LLL distal posterior branches * recent elective termination of , hx of miscarriage * anemia Plan -u.s. revenue officer consultation appreciated -continued anemia, recheck levels tomorrow, goal of hgb >7, symptoms or active bleeding -continue with eliquis, dose adjusted to 10mg po bid x 7 days then needs to be on 5mg po bid -PFTs as outpt, hx of asthma, can follow up with myself -MATT dean negative -outpatient hypercoagulable panel will be obtained and a hematology evaluation on an outpatient basis -IST - Incentive Spirometry -TRC/Nebs -pleuritic chest pain is controlled with percocet
--- NOTE | 2018-02-23 10:28 | Cons- OBGYN ---
General Information and HPI Consulting Request Date of Consult: 02/23/18 Requested By: Alonso Flores MD Source of Information: patient, old records History of Present Illness: This patient is a 27-year-old 7 para 5 status post surgical termination of 3 weeks ago admitted for anemia and pulmonary embolism postoperatively. Patient has had an uneventful hospital course other than mild anemia. She is on currently on anticoagulants and doing well she has no respiratory complaints. She also states that her vaginal bleeding has completely ceased. Her transvaginal ultrasound shows normal endometrium with no free fluid in the pelvis and her quantitative hCG is negative. She intends to maintain her fertility for 1 more in the future and will be counseled for high-risk . Allergies/Medications Allergies: Coded Allergies: latex (HIVES, SWELLING, DYSPNEA 04/24/17) Home Med List: Metformin HCl 500 MG TABLET 1 TAB PO BID DM (Reported) Past History Medical History Blood Transfusion Hx: No Neurological: NONE EENT: NONE Cardiovascular: NONE Respiratory: NONE Gastrointestinal: NONE Hepatic: NONE Renal: NONE Musculoskeletal: NONE Psychiatric: NONE Endocrine: NIDDM Blood Disorders: NA Cancer(s): NA Surgical History Pertinent Surgical History: non-contributory Psychosocial History Where Do You Live? Home Services at Home: None Smoking Status: Never Smoked ETOH Use: occasional use Illicit Drug Use: denies illicit drug use Review of Systems Review of Systems Constitutional: Reports: no symptoms. EENTM: Reports: no symptoms. Cardiovascular: Reports: no symptoms. Respiratory: Reports: no symptoms. GI: Reports: no symptoms. Genitourinary: Reports: no symptoms. Musculoskeletal: Reports: no symptoms. Skin: Reports: no symptoms. Neurological/Psychological: Reports: no symptoms. Hematologic/Endocrine: Reports: no symptoms. Immunologic/Allergic: Reports: no symptoms. All Other Systems: Reviewed and Negative Exam & Diagnostic Data Vital Signs and I&O Vital Signs Date Time Temp Pulse Resp B/P B/P Pulse O2 O2 Flow FiO2 Mean Ox Delivery Rate 02/23 0640 98.4 87 16 100/56 97 Room Air 02/23 0111 95 Room Air 02/23 0110 98.1 96 18 124/76 95 Room Air 02/22 2144 98.8 90 18 101/51 94 02/22 1840 99 Room Air 02/22 1450 97.9 80 18 99/55 80 02/22 1100 Room Air Intake & Output 02/23 1600 02/23 0800 02/23 0000 02/22 1600 02/22 0800 02/22 0000 Intake Total 967 995 1433 240 Output Total Balance 274 576 3079 240 Intake, Oral 269 338 1414 240 Patient 150 lb Weight Physical Exam: HEENT: Normocephalic atraumatic Abdomen: Soft nontender Extremities: Nontender Assessment/Plan Assessment/Plan Pulmonary embolism status post termination of on anticoagulation; endometrium within normal limits, quantitative hCG negative Plan: Management for pulmonary embolism per medicine No need for any gynecologic intervention at this point; patient has been counseled as to future contraceptive options and the need for high risk consult should she become in the future. The patient may also need Lysteda therapy for menorrhagia and possible transfusion if her anemia worsens during the hospitalization. Patient to follow-up with her private craps manager or myself as an outpatient. Thank you for this consult; I will be happy to follow her for the remainder of her hospitalization. Consult Acknowledgment - Thank you for your consult request.
[2018-02-23 15:25] VITALS: BP 90/60
[2018-02-23 22:00] VITALS: BP 100/56
[2018-02-24 06:30] VITALS: BP 104/62
--- NOTE | 2018-02-24 07:23 | PN- Housestaff ---
See Addendum Subjective Follow-up For: PE Subjective: Patient reports persistent L-side CP without radiation and SOB. No acute events overnight Review of Systems Constitutional: Reports: see HPI. Objective Last 24 Hrs of Vital Signs/I&O Vital Signs Date Time Temp Pulse Resp B/P B/P Pulse O2 O2 Flow FiO2 Mean Ox Delivery Rate 02/24 0630 98.1 72 14 104/62 98 Room Air 02/24 0457 Room Air 02/24 0000 Room Air 02/23 2200 98.4 84 17 100/56 98 Room Air 02/23 1620 98 Room Air 02/23 1600 Room Air 02/23 1525 98.1 74 20 90/60 99 02/23 1035 93 Nasal 5.0L Cannula Intake & Output 02/24 1600 02/24 0800 02/24 0000 Intake Total 600 1040 Output Total Balance 600 1040 Intake, Oral 600 1040 Physical Exam General Appearance: Alert, Oriented X3, Cooperative, No Acute Distress Cardiovascular: Regular Rate, Normal S1, Normal S2 Lungs: Clear to Auscultation, Normal Air Movement Abdomen: Normal Bowel Sounds, Soft, No Tenderness Extremities: No Edema Current Medications: Current Medications Sig/Ashtyn Start time Last Medication Dose Route Stop Time Status Admin Acetaminophen 650 MG Q6P PRN 02/22 0015 AC PO Albuterol Sulfate 3 ML BID 02/22 2100 AC 02/24 INH 0455 Apixaban 10 MG BID 02/22 2100 AC 02/24 PO 0736 Ferrous Sulfate 325 MG BID 02/24 2100 AC PO Ferrous Sulfate 325 MG DAILY 02/22 0900 DC 02/24 PO 0737 Ibuprofen 600 MG .STK-MED ONE 02/23 1637 DC PO 02/23 1638 Ibuprofen 600 MG Q6P PRN 02/22 0015 AC 02/23 PO 1640 Insulin Aspart 0 TIDAC 02/22 0800 AC SC Ondansetron HCl 4 MG Q6P PRN 02/22 0930 AC IV Oxycodone/ 2 TAB Q6P PRN 02/22 0015 AC 02/24 Acetaminophen PO 0430 Last 24 Hrs of Lab/Timothy Results Last 24 Hrs of Labs/Mics: Laboratory Tests 02/24/18 0715: CBC w Diff NO MAN DIFF REQ, RBC 3.81 L, MCV 68.2 L, MCH 21.7 L, MCHC 31.8 L, RDW 20.1 H, MPV 8.0, Gran % 71.0, Lymphocytes % 21.9, Monocytes % 6.0, Eosinophils % 0.6, Basophils % 0.5, Absolute Granulocytes 4.9, Absolute Lymphocytes 1.5, Absolute Monocytes 0.4, Absolute Eosinophils 0, Absolute Basophils 0 02/24/18 0600: Hemoglobin A1c Pending Assessment/Plan Assessment: Ms. Coley is a 27-year-old F, A2 with a PMH of asthma, NIDDM, miscarriage at the age of 17 and a recent D&C at 10 weeks gestation who presents to the ED with left chest pain for 2 days. CTA revealed a left lower lobe and distal posterior branches pulmonary embolism with small left pleural effusion #Provoked LLL PE in the setting of recent and immobility #Positive HCG with no retained products of conception on TVUS #Iron deficiency Anemia H&H - improving Plan: Based on her PESI score she has a very low risk of mortality (0-1.6% 30 day mortality) Continue apixaban 5 mg BID Continue Iron supplementation Accu-Cheks and NovoLog sliding scale Repeat beta-hCG pending Monitor H&H Pain: Oxycodone/acetaminophen, ibuprofen, acetaminophen Diet: Diabetic DVT ppx: Apixaban Code: Full Problem List: 1. Pulmonary embolism Pain Ratin Pain Location: L chest Pain Goal: Pain 4 or less Pain Plan: Percocet Tomorrow's Labs & Rationales: CBC
[2018-02-24 08:33] LABS: ABSOLUTE BASOPHIL COUNT 0 /CUMM (0.0-0.2); ABSOLUTE EOSINOPHIL COUNT 0 /CUMM (0.0-0.7); ABSOLUTE GRANULOCYTE CT 4.9 /CUMM (1.4-6.5); ABSOLUTE LYMPH COUNT 1.5 /CUMM (1.2-3.4); ABSOLUTE MONOCYTE COUNT 0.4 /CUMM (0.10-0.60); BASOPHIL % 0.5 % (0.0-2.0); EOSINOPHIL % 0.6 % (0-5); MEAN CORPUSCULAR HGB 21.7 PG (27.0-31.0); MEAN CORPUSCULAR HGB CONC 31.8 G/DL (33.0-37.0); MEAN CORPUSCULAR VOLUME 68.2 FL (81.0-99.0); PLATELET COUNT 332 /CUMM (130-400); RBC DISTRIBUTION WIDTH 20.1 % (11.5-14.5); RED BLOOD CELL CT 3.81 /CUMM (4.20-5.40); WHITE BLOOD CELL COUNT 6.8 /CUMM (4.8-10.8)
--- NOTE | 2018-02-24 09:27 | Discharge Summary ---
Visit Information Visit Dates Admission Date: 02/21/18 Discharge Date: 02/25/18 Hospital Course Course Attending Physician: Alonso Flores MD Primary Care Physician: Unknown Hospital Course: Ms. Coley is a 27-year-old F, A2 with a PMH of asthma, NIDDM, miscarriage at the age of 17 and a recent D&C at 10 weeks gestation who presents to the ED with left chest pain for 2 days. CTA revealed a left lower lobe and distal posterior branches pulmonary embolism with small left pleural effusion #Provoked LLL PE Given the fact that the patient had a recent and elective D&C with limited movement thereafter during her recovery period we suspected her pulmonary embolism was provoked. TVUS did not show any evidence of retained products of conception. She was started on Apixaban to continue for 3 months. She reported left sided chest pain during her stay that was controlled with Oxycodone/acetaminophen. Patient referred to manager program management for outpatient follow up and hypercoagulable w/u. She also requested a Rx for Nebulizer as Albuterol Neb treatments make her breathing easy. #Iron deficiency Anemia We monitored her H&H which remained stable. Labs were significant for iron deficiency. We were started her on iron supplementation #NIDDM We performed Accu-Cheks and administered on a NovoLog sliding scale #Chronic medical conditions She was given TRC/nebs PRN Allergies: Coded Allergies: latex (HIVES, SWELLING, DYSPNEA 04/24/17) Pertinent Lab Results: 02/21/18-1628 EXAM TYPE: CAT - CTA CHEST-PULMONARY EMBOLISM IMPRESSION: Pulmonary embolism with clot present within the left lower lobe interlobar artery left lower lobe and distal posterior branches. Small left pleural effusion. Focal opacity pleural-based lingula likely atelectasis VTE: positive 02/21/18-1724 EXAM TYPE: US - US-TRANSVAGINAL FINDINGS: The uterus, which is slightly retroflexed, measures 6.6 cm long, 5.7 cm AP and 6.3 cm transverse. The myometrial echotexture is normal. No evidence of uterine leiomyoma. The endometrium has a normal appearance; it measures up to 7-8 mm AP. No endometrial mass or fluid collection. The cervical canal is normal and measures 3 cm in length. The ovaries are normal. The right ovary measures 2.9 x 2 x 2.8 cm, volume of 8.2 mL. The left ovary measures 2 x 2.9 x 2 cm, volume of 6.3 mL.. Color Doppler images show presence of arterial flow within each ovary. No free fluid in the pelvic cul-de-sac. IMPRESSION: The uterus and ovaries have a normal appearance. No evidence of retained products of conception. 02/22/18- EXAM TYPE: US - US-EXT BILAT VENOUS DOPPLER IMPRESSION: No evidence of deep venous thrombosis involving the bilateral lower extremities. Disposition Summary Disposition Principal Diagnosis: Provoked Left Lower Lobe Pulmonary Embolism Iron deficiency anemia Additional Diagnosis: as above Discharge Disposition: home or self care Discharge Instructions General Discharge Information Code Status: Full Code Patient's Diet: Diabetic Patient's Activity: Full Follow-Up Instructions/Appts: Follow up with your PCP within 1 week of discharge Follow up with your TELEMETRY RN within 1 week of discharge Follow up with the Braddisher-Dr. Bustamante within 1 week of discharge Follow up with the combination machine tool setter-Dr. Carranza within 1 week of discharge Medications at Discharge Discharge Medications: Continue taking these medications: Metformin HCl (Metformin HCl) 500 MG TABLET 1 Tablet ORAL TWICE DAILY Qty = 30 Comments: NOT TAKEN IN HOSPITAL Start taking the following new medications: Apixaban (Eliquis) 5 MG TABLET 10 Milligram ORAL TWICE DAILY Qty = 60 No Refills Instructions: Take 10 mg twice daily until 03/01/18. Then 5 mg twice daily thereafter. Comments: Last Taken: 02/25/18 Time: 0815 Ferrous Sulfate (Ferrous Sulfate) 325 MG (65 MG IRON) TABLET. 325 Milligram ORAL TWICE DAILY Qty = 60 No Refills Instructions: . Comments: Last Taken: 02/25/18 Time: 0815 Albuterol Sulfate (Proair Hfa) 90 MCG HFA.AER.AD 2 Puff Inhale through mouth EVERY 4-6 HOURS NEEDED as needed for ASTHMA Qty = 1 No Refills Instructions: . Oxycodone HCl/Acetaminophen (Percocet 5-325 MG Tablet) 5 MG-325 MG TABLET 2 Tablet ORAL EVERY SIX HOURS NEEDED as needed for PAIN SCALE 7-10 ( SEVERE) Qty = 12 No Refills Comments: Last Taken: 02/25/18 Time: 1040 Albuterol Sulfate (Albuterol Sulfate) 2.5 MG/3 ML (0.083 %) VIAL.NEB 1 Vial Inhale Solution EVERY 4 HOURS NEEDED as needed for ASTHMA Qty = 70 No Refills Comments: Last Taken: 02/25/18 Time: 0930 Copies To: Dianna LIVE,Rivera; Dillon LIVE,Macije; Antonia Coles MD,Giuseppe
[2018-02-24] MEDS ORDERED: PERCOCET 5-3251 EACH PO (10:36)
[2018-02-24] MEDS ORDERED: FERROUS SULFAT325 M2 PO (10:36)
[2018-02-24] MEDS ORDERED: ELIQUIS5 M1 PO ×2 (10:36→15:31)
[2018-02-24] MEDS ORDERED: PROAIR HFA8.5 GM INH (10:36)
--- NOTE | 2018-02-24 10:38 | Patient Discharge Instructions ---
Discharge Instructions General Discharge Information You were seen/treated for: Pulmonary embolism You had these procedures: none Special Instructions: Follow up with your PCP within 1 week of discharge Follow up with your EMPLOYMENT ADJUDICATOR within 1 week of discharge Follow up with the Assembly Inspector Helper-Dr. Bustamante within 1 week of discharge Follow up with the assistant service manager-Dr. Carranza within 1 week of discharge Diet Recommended Diet: Diabetic Activity Full Activity/No Limits: Yes Acute Coronary Syndrome Inclusion Criteria At DC or during hospital stay patient has or had the following: ACS DIAGNOSIS No Discharge Core Measures Meds if any: Prescribed or Continued at Discharge Meds if any: NOT Prescribed or Continued at Discharge Congestive Heart Failure Inclusion Criteria At DC or during hospital stay patient has or had the following: CHF DIAGNOSIS No Discharge Core Measures Meds if any: Prescribed or Continued at Discharge Meds if any: NOT Prescribed or Continued at Discharge Cerebrovascular accident Inclusion Criteria At DC or during hospital stay patient has or had the following: CVA/TIA Diagnosis No Discharge Core Measures Meds if any: Prescribed or Continued at Discharge Meds if any: NOT Prescribed or Continued at Discharge Venous thromboembolism Inclusion Criteria VTE Diagnosis Yes VTE Type Pulmonary Embolism VTE Confirmed by (Test) CT CHEST ANGIOGRAM Discharge Core Measures - Per Current guidelines, there needs to be overlap - treatment for the first 5 days of Warfarin therapy. - If discharged on Warfarin prior to 5 days of - overlap therapy, the patient will need to be - assessed for post discharge needs including - *Post discharge parental anticoagulation - *Warfarin and/or parental anticoagulation education - *Follow up date to check INR post discharge At least 5 days overlap therapy as Inpatient No Why was Parental Med stopped Other Anticoagulant given Meds if any: Prescribed or Continued at Discharge Note: Overlap Therapy is Warfarin and Anticoagulant Meds if any: NOT Prescribed or Continued at Discharge
--- NOTE | 2018-02-24 10:58 | PN- Pulmonary ---
Subjective HPI/Critical Care Issues: pt seen and examined still with some chest discomfort, hgb 8.3 Objective Current Medications: Current Medications Sig/Ashtyn Start time Last Medication Dose Route Stop Time Status Admin Acetaminophen 650 MG Q6P PRN 02/22 0015 AC PO Albuterol Sulfate 3 ML BID 02/22 2100 AC 02/24 INH 1015 Apixaban 10 MG BID 02/22 2100 AC 02/24 PO 0736 Ferrous Sulfate 325 MG BID 02/24 2100 AC PO Ferrous Sulfate 325 MG DAILY 02/22 0900 DC 02/24 PO 0737 Ibuprofen 600 MG .STK-MED ONE 02/23 1637 DC PO 02/23 1638 Ibuprofen 600 MG Q6P PRN 02/22 0015 AC 02/23 PO 1640 Insulin Aspart 0 TIDAC 02/22 0800 AC SC Ondansetron HCl 4 MG Q6P PRN 02/22 0930 AC IV Oxycodone/ 2 TAB Q6P PRN 02/22 0015 AC 02/24 Acetaminophen PO 1010 Vital Signs & I&O Last 24 Hrs of Vitals and I&O: Vital Signs Date Time Temp Pulse Resp B/P B/P Pulse O2 O2 Flow FiO2 Mean Ox Delivery Rate 02/24 1022 100 Room Air Room Air 02/24 0630 98.1 72 14 104/62 98 Room Air 02/24 0457 Room Air 02/24 0000 Room Air 02/23 2200 98.4 84 17 100/56 98 Room Air 02/23 1620 98 Room Air 02/23 1600 Room Air 02/23 1525 98.1 74 20 90/60 99 Intake & Output 02/24 1600 02/24 0800 02/24 0000 Intake Total 600 1040 Output Total Balance 600 1040 Intake, Oral 600 1040 Exam Other Physical Findings: gen-aaox3 heent-room air cvs-s1,s2 lungs-ctab abd-soft,bs+ ext-without edema Results Last 24 Hrs of Lab Results: Laboratory Tests 02/24/18 0715: CBC w Diff NO MAN DIFF REQ, RBC 3.81 L, MCV 68.2 L, MCH 21.7 L, MCHC 31.8 L, RDW 20.1 H, MPV 8.0, Gran % 71.0, Lymphocytes % 21.9, Monocytes % 6.0, Eosinophils % 0.6, Basophils % 0.5, Absolute Granulocytes 4.9, Absolute Lymphocytes 1.5, Absolute Monocytes 0.4, Absolute Eosinophils 0, Absolute Basophils 0 02/24/18 0600: Hemoglobin A1c Pending Impression/Plan Impression/Plan Impression/Plan: Impression 27 year old woman * PE - LLL interlobar artery and LLL distal posterior branches * recent elective termination of , hx of miscarriage * anemia Plan -resilient tile installer consultation appreciated -continued anemia, recheck levels tomorrow, goal of hgb >7, symptoms or active bleeding -continue with eliquis, dose adjusted to 10mg po bid x 7 days then needs to be on 5mg po bid -PFTs as outpt, hx of asthma, can follow up with myself -LE dopplers negative -outpatient hypercoagulable panel will be obtained and a hematology evaluation on an outpatient basis -IST - Incentive Spirometry -TRC/Nebs -pleuritic chest pain is controlled with percocet
[2018-02-24 15:38] VITALS: BP 109/74
[2018-02-24 22:08] VITALS: BP 92/58
[2018-02-25 06:07] VITALS: BP 102/60
--- NOTE | 2018-02-25 07:24 | PN- Housestaff ---
Subjective Follow-up For: Provoked PE Subjective: Patient says she still has the chest pain 05/19, but she was able to sleep last night and thinks she is ready to go home today. Also wants a prescription for albuterol nebs, as she has been getting the neb treaments here and she thinks it helped with her asthma. Review of Systems Constitutional: Reports: no symptoms. EENTM: Reports: no symptoms. Cardiovascular: Reports: chest pain. Respiratory: Reports: no symptoms. Gastrointestinal: Reports: no symptoms. Genitourinary: Reports: no symptoms. Musculoskeletal: Reports: no symptoms. Skin: Reports: no symptoms. Neurological/Psychological: Reports: no symptoms. Hematologic/Endocrine: Reports: no symptoms. Immunologic/Allergic: Reports: no symptoms. Objective Last 24 Hrs of Vital Signs/I&O Vital Signs Date Time Temp Pulse Resp B/P B/P Pulse O2 O2 Flow FiO2 Mean Ox Delivery Rate 02/25 0829 98 Room Air 02/25 0800 Room Air 02/25 0607 97.8 75 20 102/60 99 Room Air 02/25 0000 100 Room Air 02/24 2310 98.4 02/24 2208 9.4 74 18 92/58 100 Room Air 02/24 2026 98 Room Air 02/24 1538 98.6 76 20 109/74 99 Intake & Output 02/25 1600 02/25 0800 02/25 0000 Intake Total 480 480 Output Total Balance 480 480 Intake, Oral 480 480 Physical Exam General Appearance: Alert, Oriented X3, Cooperative Skin: No Rashes, No Breakdown Cardiovascular: Regular Rate, Normal S1, Normal S2 Lungs: Clear to Auscultation, Normal Air Movement Abdomen: Normal Bowel Sounds, Soft, No Tenderness Extremities: No Clubbing, No Cyanosis, No Edema Current Medications: Current Medications Sig/Ashtyn Start time Last Medication Dose Route Stop Time Status Admin Acetaminophen 650 MG Q6P PRN 02/22 0015 DCD PO Albuterol Sulfate 3 ML BID 02/22 2100 DCD 02/25 INH 0828 Apixaban 10 MG BID 02/22 2100 DCD 02/25 PO 0817 Ferrous Sulfate 325 MG BID 02/24 2100 DCD 02/25 PO 0817 Ibuprofen 800 MG .STK-MED ONE 02/24 1819 DC PO 02/24 1820 Ibuprofen 600 MG Q6P PRN 02/22 0015 DCD 02/23 PO 1640 Insulin Aspart 0 TIDAC 02/22 0800 DCD SC Insulin Detemir 28 UNITS .STK-MED ONE 02/24 2022 DC SC 02/24 2023 Ondansetron HCl 4 MG Q6-PRN PRN 02/25 0300 DCD 02/25 PO 0307 Ondansetron HCl 4 MG Q6 02/25 0245 DC PO Ondansetron HCl 4 MG Q6P PRN 02/22 0930 DC IV Oxycodone/ 2 TAB Q6P PRN 02/22 0015 DCD 02/25 Acetaminophen PO 1041 Last 24 Hrs of Lab/Timothy Results Last 24 Hrs of Labs/Mics: Laboratory Tests 02/25/18 0650: CBC w Diff NO MAN DIFF REQ, RBC 3.76 L, MCV 69.1 L, MCH 21.5 L, MCHC 31.1 L, RDW 20.5 H, MPV 8.1, Gran % 44.6, Lymphocytes % 44.9, Monocytes % 7.4, Eosinophils % 2.1, Basophils % 1.0, Absolute Granulocytes 2.2, Absolute Lymphocytes 2.2, Absolute Monocytes 0.4, Absolute Eosinophils 0.1, Absolute Basophils 0.1 02/24/18 1400: Beta HCG, Quant 10.0 Assessment/Plan Assessment: Ms. Coley is a 27-year-old F, A2 with a PMH of asthma, NIDDM, miscarriage at the age of 17 and a recent D&C at 10 weeks gestation who presents to the ED with left chest pain for 2 days. CTA revealed a left lower lobe and distal posterior branches pulmonary embolism with small left pleural effusion #Provoked LLL PE in the setting of recent and immobility #Positive HCG with no retained products of conception on TVUS #Iron deficiency Anemia H&H - improving Plan: Based on her PESI score she has a very low risk of mortality (0-1.6% 30 day mortality) Continue apixaban 10 mg BID till 03/01, then decrease to 5 mg BID Continue Iron supplementation Accu-Cheks and NovoLog sliding scale, resume metformin on discharge. Repeat beta-hCG is 10.0(decreasing) H&H stable Patient requesting a prescription for albuterol nebulizer for asthma, as she has been getting the neb treatments in the hospital and thinks it has helped with her breathing. Will prescribe Nebs. Pain: Oxycodone/acetaminophen, ibuprofen, acetaminophen Diet: Diabetic DVT ppx: Apixaban Code: Full Problem List: 1. Pulmonary embolism Pain Ratin Pain Location: Chest Pain Goal: Pain 7 or less Pain Plan: Pain Pathway Tomorrow's Labs & Rationales: None
[2018-02-25 08:28] LABS: ABSOLUTE BASOPHIL COUNT 0.1 /CUMM (0.0-0.2); ABSOLUTE EOSINOPHIL COUNT 0.1 /CUMM (0.0-0.7); ABSOLUTE GRANULOCYTE CT 2.2 /CUMM (1.4-6.5); ABSOLUTE LYMPH COUNT 2.2 /CUMM (1.2-3.4); ABSOLUTE MONOCYTE COUNT 0.4 /CUMM (0.10-0.60); EOSINOPHIL % 2.1 % (0-5); GRANULOCYTE % 44.6 % (42.2-75.2); MEAN CORPUSCULAR HGB 21.5 PG (27.0-31.0); MEAN CORPUSCULAR HGB CONC 31.1 G/DL (33.0-37.0); MEAN CORPUSCULAR VOLUME 69.1 FL (81.0-99.0); MEAN PLATELET VOLUME 8.1 FL (7.4-10.4); PLATELET COUNT 320 /CUMM (130-400); RBC DISTRIBUTION WIDTH 20.5 % (11.5-14.5); RED BLOOD CELL CT 3.76 /CUMM (4.20-5.40); WHITE BLOOD CELL COUNT 4.9 /CUMM (4.8-10.8)
[2018-02-25] MEDS ORDERED: PROAIR HFA8.5 GM INH ×2 (09:21→09:31)
[2018-02-25] MEDS ORDERED: ALBUTEROL0.63 MG/1 INH/SOL (09:29)
[2018-02-25] MEDS ORDERED: ELIQUIS5 M1 PO (09:31)
[2018-02-25] MEDS ORDERED: FERROUS SULFAT325 M2 PO (09:31)
[2018-02-25] MEDS ORDERED: PERCOCET 5-3251 EACH PO (09:36)
[2018-02-25] MEDS ORDERED: ALBUTEROL2.5 MG/3 M INH/SOL (10:02)
--- NOTE | 2018-02-25 10:44 | PN- Pulmonary ---
Subjective HPI/Critical Care Issues: pt seen and examined awaitind discharge had some nausea controlled with zofran Objective Current Medications: Current Medications Sig/Ashtyn Start time Last Medication Dose Route Stop Time Status Admin Acetaminophen 650 MG Q6P PRN 02/22 0015 AC PO Albuterol Sulfate 3 ML BID 02/22 2100 AC 02/25 INH 0828 Apixaban 10 MG BID 02/22 2100 AC 02/25 PO 0817 Ferrous Sulfate 325 MG BID 02/24 2100 AC 02/25 PO 0817 Ibuprofen 800 MG .STK-MED ONE 02/24 1819 DC PO 02/24 1820 Ibuprofen 600 MG Q6P PRN 02/22 0015 AC 02/23 PO 1640 Insulin Aspart 0 TIDAC 02/22 0800 AC SC Insulin Detemir 28 UNITS .STK-MED ONE 02/24 2022 DC SC 02/24 2023 Ondansetron HCl 4 MG Q6-PRN PRN 02/25 0300 AC 02/25 PO 0307 Ondansetron HCl 4 MG Q6 02/25 0245 DC PO Ondansetron HCl 4 MG Q6P PRN 02/22 0930 DC IV Oxycodone/ 2 TAB Q6P PRN 02/22 0015 AC 02/24 Acetaminophen PO 2207 Vital Signs & I&O Last 24 Hrs of Vitals and I&O: Vital Signs Date Time Temp Pulse Resp B/P B/P Pulse O2 O2 Flow FiO2 Mean Ox Delivery Rate 02/25 0829 98 Room Air 02/25 0800 Room Air 02/25 0607 97.8 75 20 102/60 99 Room Air 02/25 0000 100 Room Air 02/24 2310 98.4 02/248 9.4 74 18 92/58 100 Room Air 02/24 2026 98 Room Air 02/24 1538 98.6 76 20 109/74 99 Intake & Output 02/25 1600 02/25 0800 02/25 0000 Intake Total 480 480 Output Total Balance 480 480 Intake, Oral 480 480 Exam Other Physical Findings: gen-aaox3 heent-room air cvs-s1,s2 lungs-ctab ext-without edema Results Last 24 Hrs of Lab Results: Laboratory Tests 02/25/18 0650: CBC w Diff NO MAN DIFF REQ, RBC 3.76 L, MCV 69.1 L, MCH 21.5 L, MCHC 31.1 L, RDW 20.5 H, MPV 8.1, Gran % 44.6, Lymphocytes % 44.9, Monocytes % 7.4, Eosinophils % 2.1, Basophils % 1.0, Absolute Granulocytes 2.2, Absolute Lymphocytes 2.2, Absolute Monocytes 0.4, Absolute Eosinophils 0.1, Absolute Basophils 0.1 02/24/18 1400: Beta HCG, Quant 10.0 Impression/Plan Impression/Plan Impression/Plan: Impression 27 year old woman * PE - LLL interlobar artery and LLL distal posterior branches * recent elective termination of , hx of miscarriage * anemia Plan -traffic maintenance supervisor consultation appreciated -continued anemia, recheck levels tomorrow, goal of hgb >7, symptoms or active bleeding -continue with eliquis, dose adjusted to 10mg po bid x 7 days then needs to be on 5mg po bid -PFTs as outpt, hx of asthma, can follow up with myself -LE dopplers negative -outpatient hypercoagulable panel will be obtained and a hematology evaluation on an outpatient basis -IST - Incentive Spirometry -TRC/Nebs -pleuritic chest pain is controlled with percocet f/u in office
--- NOTE | 2018-02-25 11:37 | PN- Att Addend ---
Attending Addendum Attending Brief Note Patient seen and examined, overall doing better. Still have some chest pain but improved than before. She wants to get the prescription for the nebulizer because she thinks that it is helping her. Patient has been kept on liquids for this acute pulmonary embolism. She is otherwise medically stable for discharge home today. She will follow-up with her primary care doctor, health promotion officer Dr. Carranza as well as sheet rock sander for hypercoagulable workup. The rest of her home medications will be continued. Will give her the prescription for the nebulizer and albuterol.
== END 2018-02-25 12:37 | DRG 564 ==
LOC: ERH 12:39 → 2NA 20:27 → ERHI 20:27 → EDBEDREQ 21:15 → ENRESERV 21:28 → ENTRNSPT 21:52 → EDTRNSPT 22:16 → EDTRNSPTSTS 22:16 → 2NA 22:20 → CMPTRNSPT 22:47 → ENPENDDIS 02-25 09:26 → 2NA 02-25 11:12 → ENTRNSPT 02-25 12:23 → EDTRNSPTSTS 02-25 12:33 → EDTRNSPT 02-25 12:33 → 2NA 02-25 12:37 → CMPTRNSPT 02-25 13:00
PROVIDERS: Internal Medicine; Physician Assistant; Preventive Medicine Public Health & General Preventive Medicine; Student in an Organized Health Care Education/Training Program
DX: O00-O9A Pregnancy, childbirth and the puerperium (principal); I26.99 Other pulmonary embolism without acute cor pulmonale; D62 Acute posthemorrhagic anemia; Z79.84 Long term (current) use of oral hypoglycemic drugs; Z91.040 Latex allergy status; D50.9 Iron deficiency anemia, unspecified; E11.9 Type 2 diabetes mellitus without complications; J45.909 Unspecified asthma, uncomplicated
CPT/HCPCS: 2NAP; 36415; 36592; 82436; 93005; 93010; 93970; J1644; J1815; J3101

== ENCOUNTER 2018-04-29 05:42 | Observation (INO) | payer OTHER ==
[~2018-04-29] VITALS: Ht 157.5 cm; Wt 68.9 kg
[~2018-04-29 05:42] MED LIST changes: +ALBUTEROL0.63 MG/1 INH/SOL; +ALBUTEROL2.5 MG/3 M INH/SOL; +ELIQUIS5 M1 PO; +FERROUS SULFAT325 M2 PO; +PROAIR HFA8.5 GM INH
--- NOTE | 2018-04-29 06:19 | ED NEURO DEFICIT/STROKE ---
History of Present Illness General Chief Complaint: General Adult Stated Complaint: "CHILLS,WEAKNESS,NUMBESS LT ARM, HX OF BLOOD CLOTS Source: patient Exam Limitations: no limitations Vital Signs & Intake/Output Vital Signs & Intake/Output Vital Signs Date Time Temp Pulse Resp B/P B/P Pulse O2 O2 Flow FiO2 Mean Ox Delivery Rate 04/29 0630 Room Air 04/29 0552 98.4 87 18 110/73 98 Room Air Allergies Coded Allergies: latex (HIVES, SWELLING, DYSPNEA 04/24/17) Reconcile Medications Albuterol Sulfate 2.5 MG/3 ML (0.083 %) VIAL.NEB 1 Vial INH/DUGLAS Q4P PRN ASTHMA Albuterol Sulfate (Proair Hfa) 90 MCG HFA.AER.AD 2 PUF INH Q4-6 PRN PRN ASTHMA . Apixaban (Eliquis) 5 MG TABLET 10 MG PO BID pulmonary embolism Take 10 mg twice daily until 03/01/18. Then 5 mg twice daily thereafter. Ferrous Sulfate 325 MG (65 MG IRON) TABLET.DR 325 MG PO BID iron deficiency . Metformin HCl 500 MG TABLET 1 TAB PO BID DM (Reported) Oxycodone HCl/Acetaminophen (Percocet 5-325 MG Tablet) 5 MG-325 MG TABLET 2 TAB PO Q6P PRN PAIN SCALE 7-10 (SEVERE) Triage Nurses Notes Reviewed? yes : No Patient currently breastfeeds: No HPI: Patient is a 27-year-old female with past medical history of stroke symptoms 2 weeks ago for which she was worked up and admitted at [facility] in [facility], who presents today to our ED for left upper extremity paresthesias beginning at 2300 hrs (approximately 7 hours prior to ED arrival). She states that her periods episode 2 weeks ago included right-sided total-body paresthesias and mild hemiparesis. Prior to that, the patient has had a pulmonary embolism and is on Ellick was anticoagulation. She has an outpatient appointment scheduled with hematology for later this week. Upon my initial encounter the patient is generally nontoxic and well-appearing without overt signs of stroke. Past History Travel History Traveled to [place] past 21 day No Medical History Any Pertinent Medical History? none Neurological: NONE EENT: NONE Cardiovascular: NONE Respiratory: NONE Gastrointestinal: NONE Hepatic: NONE Renal: NONE Musculoskeletal: NONE Psychiatric: NONE Endocrine: NIDDM Blood Disorders: NA Cancer(s): NA History of MRSA: Yes History of VRE: No History of CDIFF: No Surgical History Surgical History: non-contributory Psychosocial History Services at Home None What is your primary language Spanish Tobacco Use: Never used Family History Hx Contributory? No Review of Systems Review of Systems Constitutional: Reports: see HPI, weakness. EENTM: Reports: blurred vision. Respiratory: Reports: no symptoms. Cardiovascular: Reports: no symptoms. GI: Reports: no symptoms. Genitourinary: Reports: no symptoms. Musculoskeletal: Reports: no symptoms. Skin: Reports: no symptoms. Neurological/Psychological: Reports: tingling, weakness. Hematologic/Endocrine: Reports: no symptoms. Immunologic/Allergic: Reports: no symptoms. All Other Systems: Reviewed and Negative Physical Exam Physical Exam General Appearance: well developed/nourished, no apparent distress, alert, awake , comfortable Cranial Nerves: PERRL Comments: HEENT: Inspection of the head reveals a normocephalic cranium with no signs of trauma. Ophtho: Extraocular muscles are intact and pupils are equal and reactive to light bilaterally with no afferent pupillary defect. The sclera are noninjected , and there is no obvious discharge. Neck: The trachea is midline, there is no obvious asymmetry or mass over the thyroid, and there is no midline cervical spine tenderness Respiratory: The lungs are clear and equal to auscultation bilaterally without wheezes, rales, or rhonchi. The patient exhibits no signs of labored breathing. Cardiac: Regular rhythm and non-tachycardic without appreciable murmurs on auscultation. No obvious JVD. GI: Examination of the abdomen reveals no significant focal tenderness in any of the four quadrants. There is negative Spence's sign, negative McBurney's point tenderness, negative Michael sign, negative Camp-Herrera sign, and no signs of peritonitis whatsoever on percussion or deep palpation. The skin is intact with no sign of trauma or infection. : Deferred Neuro: The patient is oriented to person, place, time, and situation. There is focal weakness of the left upper extremity copy messenger strength with subjective paresthesias. Cranial nerves II through XII are intact, and gait is normal. Behavioral: Calm and cooperative Dermatologic: Dermatologic examination reveals no diffuse rashes or exanthems, no petechiae, no ecchymoses, and no other signs of erythema or infection. Core Measures CVA/TIA Diagnosis: Yes NIH Stroke Scale NIH Stroke Scale Response Value Level of Consciousness alert 0 LOC Questions answers both correctly 0 LOC Commands obeys both correctly 0 Best Gaze normal 0 Visual Pierce no visual loss 0 Facial Paresis normal 0 Motor Arm - Left drift 1 Motor Arm - Right no drift 0 Motor Leg - Left no drift 0 Motor Leg - Right no drift 0 Limb Ataxia no ataxia 0 Sensory partial loss 1 Best Language no aphasia 0 Dysarthria normal articulation 0 Total 2 Date Last Known Well: 04/28/18 Time Last Known Well: 2300 tPA Risk/Benefit discussion I have discussed the risks, benefits, and alternatives of Alteplase treatment including: - If given promptly, can resolve or have major improvement in stroke symptoms. - Bleeding (hemorrhage) is the most common risk that can occur. - Bleeding may occur into the brain and cause~fci serious disability~ including - this is rare, affecting about 1% of patients. - Alternative treatments with proven benefit for patients with stroke include aspirin and care in a specialized unit where staff members pay careful attention to a variety of basic aspects of care. tPA given? No Reason tPA not given Medical Contraindication Sepsis Present: No Sepsis Focused Exam Completed? No Progress Differential Diagnosis: intracranial Hem., intracranial mass/tumor, migraine DELATORRE, stroke, CVA Plan of Care: Orders Procedure Date/time Status Regular Diet 04/29 L Active Patient Data 04/29 723 Active ED Holding Orders 04/29 715 Active Admit to inpatient 04/29 715 Active Code Status 04/29 715 Active PARTIAL THROMBOPLASTIN TIME 04/29 616 Complete PROTHROMBIN TIME 04/29 616 Complete COMPREHENSIVE METABOLIC PANEL 04/29 616 Complete CBC WITHOUT DIFFERENTIAL 04/29 616 Complete EKG 04/29 616 Active Laboratory Tests 04/29/18 0620: Anion Gap 9, Estimated GFR > 60, BUN/Creatinine Ratio 17.5, Glucose 109 H, Calcium 9.7, Total Bilirubin 0.3, AST 21, ALT 28, Alkaline Phosphatase 57, Total Protein 7.7, Albumin 4.2, Globulin 3.5, Albumin/Globulin Ratio 1.2, PT 11.0, INR 1.01, APTT 30, CBC w Diff NO MAN DIFF REQ, RBC 4.39, MCV 81.3, MCH 26.9 L, MCHC 33.1, RDW 23.9 H, MPV 8.4, Gran % 59.4, Lymphocytes % 31.4, Monocytes % 7.6, Eosinophils % 0.9, Basophils % 0.7, Absolute Granulocytes 4.3, Absolute Lymphocytes 2.3, Absolute Monocytes 0.6, Absolute Eosinophils 0.1, Absolute Basophils 0.1 Initial ED EKG: normal axis, normal intervals, normal p-waves, normal QRS complex, normal sinus rhythm Prior EKG: unchanged Comments: I discussed the case with the on-call neurologist Dr. Jones in an effort to avoid irradiating this young patient again in favor of an MRI. He agreed and recommended hospitalization for stroke observation and MRI within the next 24 hours. Patient hospitalized in stable condition. Departure Departure Time of Disposition: 725 Disposition: STILL A PATIENT Condition: Stable Clinical Impression Primary Impression: CVA (cerebral vascular accident) Qualifiers: CVA mechanism: unspecified Qualified Code: I63.9 - Cerebral infarction, unspecified Referrals: Patient Has No Primary Care Dr (PCP/Family) Departure Forms: Customer Survey General Discharge Information Admission Note Spoke With: Nuha Nieves MD Documentation of Exam: Documentation of any treatments & extenuating circumstances including Concerns Regarding Discharge (functional status, medication knowledge or non-compliance, living conditions, etc.) that warrant an admission rather than observation: I feel that this patient requires hospitalization because of her recurrent neurologic deficit, incomplete hematologic workup, and the possibility of further strokelike symptoms which could lead to serious deficit in disability. She has failed outpatient treatment as attempted by [facility] after discharge from that institution.
[2018-04-29 06:41] LABS: ABSOLUTE BASOPHIL COUNT 0.1 /CUMM (0.0-0.2); ABSOLUTE EOSINOPHIL COUNT 0.1 /CUMM (0.0-0.7); ABSOLUTE GRANULOCYTE CT 4.3 /CUMM (1.4-6.5); ABSOLUTE LYMPH COUNT 2.3 /CUMM (1.2-3.4); ABSOLUTE MONOCYTE COUNT 0.6 /CUMM (0.10-0.60); BASOPHIL % 0.7 % (0.0-2.0); EOSINOPHIL % 0.9 % (0-5); GRANULOCYTE % 59.4 % (42.2-75.2); HEMATOCRIT 35.7 % (37-47); MEAN CORPUSCULAR HGB 26.9 PG (27.0-31.0); MEAN CORPUSCULAR HGB CONC 33.1 G/DL (33.0-37.0); MEAN CORPUSCULAR VOLUME 81.3 FL (81.0-99.0); MEAN PLATELET VOLUME 8.4 FL (7.4-10.4); PLATELET COUNT 319 /CUMM (130-400); RBC DISTRIBUTION WIDTH 23.9 % (11.5-14.5); RED BLOOD CELL CT 4.39 /CUMM (4.20-5.40); WHITE BLOOD CELL COUNT 7.3 /CUMM (4.8-10.8)
[2018-04-29 06:55] LABS: PTT 30 SEC (25-37)
--- NOTE | 2018-04-29 08:03 | History & Physical ---
Jeanine Vivas 04/29/18 0802: General Information and HPI MD Statement: I have seen and personally examined SAUL COLEY and documented this H&P. The patient is a 27 year old F who presented with a patient stated chief complaint of []. Source of Information: patient Exam Limitations: no limitations History of Present Illness: Mrs Coley is a 27-year-old female, A2 (D&C 2), [id number] diabetes mellitus (diagnosed in 2015), asthma, previous provoked pulmonary emboli after D&C at 10 weeks of gestational age, previously admitted to [facility] 02/21/2018 for left-sided chest pain and was found to have left lower lobe PE ( thought to be provoked after the D&C), recent admission at [facility] for suspected stroke 2 weeks ago after having complete right-sided weakness tingling and numbness with stroke workup negative for any acute findings comes in today with chief complaint of left-upper extremity weakness, tingling and numbness. Apparently the patient was found to have a PE during her admission in February 2018 after which she notes that she has been feeling weak and lethargic. The night prior to admission around 2300, she started to feel weak, had numbness and tingling of the left arm along with weakness, started to feel funny, felt like her heart was racing along with upset stomach and had 4 episodes of loose watery diarrhea. She continued to have weakness and numbness of the left arm, felt very weak along with altered sensation in the arm, she called her mother and her mother recommended her to call the ambulance. Of note, she was recently admitted to [facility] for right-sided weakness, was found to have a negative stroke workup. She denied any abnormal seizure-like activity, any head trauma, loss of bowel or bladder control, history of strokes in the family. She does note that her brother has had previous clots in the legs on more than 2 occasions, however this happened after knee replacements for his arthritis. She is currently on Eliquis 10 mg twice daily for the PE. She is seeing Dr. fountain as outpatient, and recollects that he did perform some blood work for coagulation disorder which was mostly negative however she cannot tell us what these tests exactly were. Allergies/Medications Allergies: Coded Allergies: latex (HIVES, SWELLING, DYSPNEA 04/24/17) Home Med list Albuterol Sulfate 2.5 MG/3 ML (0.083 %) VIAL.NEB 1 Vial INH/DUGLAS Q4P PRN ASTHMA Albuterol Sulfate (Proair Hfa) 90 MCG HFA.AER.AD 2 PUF INH Q4-6 PRN PRN ASTHMA . Apixaban (Eliquis) 5 MG TABLET 10 MG PO BID pulmonary embolism Take 10 mg twice daily until 03/01/18. Then 5 mg twice daily thereafter. Ferrous Sulfate 325 MG (65 MG IRON) TABLET.DR 325 MG PO Q48 iron deficiency TAKE 2 PILLS EVERY OTHER DAY Metformin HCl 500 MG TABLET 1 TAB PO BID DM (Reported) Oxycodone HCl/Acetaminophen (Percocet 5-325 MG Tablet) 5 MG-325 MG TABLET 2 TAB PO Q6P PRN PAIN SCALE 7-10 (SEVERE) Past History Travel History Traveled to [place] past 21 day No Medical History Neurological: NONE EENT: NONE Cardiovascular: NONE Respiratory: NONE Gastrointestinal: NONE Hepatic: NONE Renal: NONE Musculoskeletal: NONE Psychiatric: NONE Endocrine: NIDDM Blood Disorders: PE, NA Cancer(s): NA History of MRSA: Yes History of VRE: No History of CDIFF: No Surgical History Surgical History: Past Family/Social History Psychosocial History Where do you live? Home Who Do You Live With? BF Services at Home: None Primary Language: Latvian Smoking Status: Light Tobacco Smoker ETOH Use: occasional use Illicit Drug Use: denies illicit drug use Functional Ability ADLs Independent: dressing, eating, toileting, bathing. Ambulation: independent IADLs Independent: shopping, housework, finances, food prep, telephone, transportation , medication admin. Employment History Employment Employed Profession/Employer law firm office Review of Systems Review of Systems Constitutional: Reports: malaise, weakness. Denies: chills, diaphoresis, fever. EENTM: Denies: blurred vision, double vision, visual changes, eye pain, eye drainage. Cardiovascular: Reports: palpitations. Denies: chest pain, edema, orthopena. Respiratory: Reports: no symptoms. GI: Reports: diarrhea, nausea. Denies: abdominal pain, bloating, constipation, distention, bowel incontinence, melena. Genitourinary: Reports: no symptoms. Musculoskeletal: Denies: back pain, gout, joint pain, joint swelling. Skin: Reports: no symptoms. Neurological/Psychological: Reports: numbness, paresthesia, pre-existing deficit, tingling. Denies: ataxia, cognitive dysfunction, confusion, depressed, dementia. Hematologic/Endocrine: Reports: no symptoms. Immunologic/Allergic: Reports: no symptoms. All Other Systems: Reviewed and Negative Exam & Diagnostic Data Last 24 Hrs of Vital Signs/I&O Vital Signs Date Time Temp Pulse Resp B/P B/P Pulse O2 O2 Flow FiO2 Mean Ox Delivery Rate 04/29 0630 Room Air 04/29 0552 98.4 87 18 110/73 98 Room Air Intake & Output 04/29 1600 04/29 0800 04/29 0000 Intake Total 0 Output Total Balance 0 Intake, Oral 0 Patient 68.946 kg Weight Physical Exam General Appearance Alert, Oriented X3, Cooperative, No Acute Distress Skin No Rashes, No Breakdown HEENT Atraumatic, PERRLA, EOMI Neck Supple, No JVD Cardiovascular Normal S1, Normal S2, No Murmurs Lungs Clear to Auscultation, Normal Air Movement Abdomen Normal Bowel Sounds, Soft, stria gravidarum +. scar present Neurological Normal Speech, Normal Tone, Sensation Intact, Cranial Nerves 3-12 NL, Reflexes 2+, strength reduced RUE and RLE 4+/5 strength reduced LUE Extremities No Clubbing, No Cyanosis, No Edema, Normal Pulses Vascular Normal Pulses Last 24 Hrs of Labs/Timothy: Laboratory Tests 04/29/18 0832: Triglycerides 62, Cholesterol 176, LDL Cholesterol, Calc 106, HDL Cholesterol 58 , Cholesterol/HDL Ratio 3 04/29/18 0620: Anion Gap 9, Estimated GFR > 60, BUN/Creatinine Ratio 17.5, Glucose 109 H, Calcium 9.7, Total Bilirubin 0.3, AST 21, ALT 28, Alkaline Phosphatase 57, Total Protein 7.7, Albumin 4.2, Globulin 3.5, Albumin/Globulin Ratio 1.2, Total Beta HCG NEGATIVE, PT 11.0, INR 1.01, APTT 30, CBC w Diff NO MAN DIFF REQ, RBC 4.39, MCV 81.3, MCH 26.9 L, MCHC 33.1, RDW 23.9 H, MPV 8.4, Gran % 59.4, Lymphocytes % 31.4, Monocytes % 7.6, Eosinophils % 0.9, Basophils % 0.7, Absolute Granulocytes 4.3, Absolute Lymphocytes 2.3, Absolute Monocytes 0.6, Absolute Eosinophils 0.1, Absolute Basophils 0.1 Diagnostic Data EKG Results Normal sinus rhythm, rate of 78, T-wave inversions present in V2 (also present in the old EKG) MI of 172, QTC of 420, no acute ST-T wave abnormalities. Assessment/Plan Assessment: In summary, Ms. Coley is a 27-year-old female, A2 (D&C 2), non- insulin-dependent diabetes mellitus (diagnosed in 2016), asthma, previous provoked pulmonary emboli after D&C at 10 weeks of gestational age (February 2018) admitted to [facility] 02/21/2018 for left-sided chest pain when she was found to have a left lower lobe PE, discharged on Eliquis with recent admission to [facility] for suspected stroke 2 weeks prior to today's presentation, was brought in by ambulance with chief complaint of left upper extremity weakness, tingling and numbness associated with initial episode of feeling funny, palpitations, 4 episodes of loose watery diarrhea followed by generalized weakness 6 hours prior to presentation around 5 AM on the morning of 04/29/2018. Vitals temperature of 98.4, pulse of 87, respiration of 18, blood pressure of 110/73, was saturating 98% on room air. White count of 7.3, H/H of 11.8/35.7, platelet of 319. Sodium of 138, potassium of 3.9, BUN/creatinine 14/0.8, glucose of 109, calcium of 9.7. Liver function tests within normal limit. MCV of 81.3. EKG showed normal sinus rhythm, rate of 78, T-wave inversion present in V2 that were also present in the old EKG, MI of 172, QTC of 420, no acute ST-T wave abnormalities. We will admit the patient to cardiac telemetry floor for continuous cardiac monitoring. Assessment : Possible causes of left arm weakness could be TIA versus ischemic stroke versus partial seizure. Her previous workup at [facility] for stroke after her right- sided weakness was negative for any findings. She does seem to have some residual weakness of the right upper extremity and lower extremity. Left upper extremity is mildly weak in strength. Tone, reflexes, cranial nerves and cerebellar findings intact. Some other possible causes of stroke in young adults would include congenital and acquired heart problems, hematological conditions, vasculopathy other metabolic disorders as well as drug ingestion. She has been worked up for hematological coagulation disorders as outpatient by Dr. Stafford, we will obtain an echocardiogram to rule out congenital and acquired heart problems, she denied any illicit drug usage, will continue cardiac telemetry monitored for any arrhythmias. Other less likely possibility could be focal seizures like temporal lobe origin because of her funny feeling in the stomach and extreme tiredness after the diarrhea however this could also be just the diarrhea itself. We will obtain nuerology consult, decision to pursue EEG per neurology she denied any aura as such. Other more likely possibibilty after ruling out stroke would be simply viral gastroenteritis Denied any headache, chest pain, head trauma. Problem list along with assessment and plan. Problem #1 Upper extremity weakness possible TIA versus ischemic stroke versus seizure. Problem #2 Diarrhea 2/2 to viral gastroenteritis Problem #2 history of pulmonary emboli on Eliquis. Problem #3 history of diabetes mellitus on metformin. Problem #4 history of asthma on as needed inhalers. * Please Place the patient for 24 hours observation on telemetry floor for continuous cardiac monitoring. * Continue monitoring vitals, intake and output, neurochecks, NIH stroke scale, fall precaution, seizure precaution, she passed bedside swallow eval therefore will order a diet. * MRI of the brain, echocardiogram wiht bubble studies, lipid profile, she is already on Eliquis, consider starting statin if suspicion for stroke is high. * Nuero consult. * FS monitoring * hold metformin * novolgue SS * obtain records from [facility] of recent admission * Please also obtain records from Dr stafford of her recent coagulation disorder work up. * Plenty of fluid orally, send c diff if furhter diarrhea. * consider psych evalaution Full code. Pain pathway. DVT prophylaxis with Eliquis. As Ranked By This Provider Problem List: 1. CVA (cerebral vascular accident) Qualifiers CVA mechanism: unspecified Qualified Code: I63.9 - Cerebral infarction, unspecified 2. Pulmonary embolism Core Measures/Misc (05/26) Acute Coronary Syndrome ACS Diagnosis: No Congestive Heart Failure Congestive Heart Failure Diagnosis No Cerebrovascular Accident CVA/TIA Diagnosis: Yes Date Last Known Well: 04/28/18 Time Last Known Well: 2300 Symptom Start Date: 04/28/18 Symptom Start Time: 2300 tPA Risk/Benefit discussion I have discussed the risks, benefits, and alternatives of Alteplase treatment including: - If given promptly, can resolve or have major improvement in stroke symptoms. - Bleeding (hemorrhage) is the most common risk that can occur. - Bleeding may occur into the brain and cause~intermediate project manager serious disability~ including - this is rare, affecting about 1% of patients. - Alternative treatments with proven benefit for patients with stroke include aspirin and care in a specialized unit where staff members pay careful attention to a variety of basic aspects of care. tPA given? No Swallow Evaluation Pass Current/Past Hx AFib/AFlutter No VTE (View Protocol) VTE Risk Factors VTE (Previous) No Mechanical VTE Prophylaxis d/t Other No VTE Pharm Prophylaxis d/t Other Sepsis (View protocol) Sepsis Present: No If YES complete Sepsis Event Note If YES complete Sepsis Event Note Resident Review Statement Resident Statement: admitted by resident Twan Johns MD 04/29/18 1325: Core Measures/Misc (05/26) Sepsis (View protocol) If YES complete Sepsis Event Note If YES complete Sepsis Event Note Attending MD Review Statement Attending Statement Attending MD Statement: examined this patient, discuss w/resident/PA/LABORER CUTTING TOOL, agreed w/resident/PA/LABORER CUTTING TOOL, reviewed EMR data (avail), discussed with nursing, discussed with case mgmt, amended to note Attending Assessment/Plan: Patient seen and examined. Reviewed the resident's history and physical. Patient's symptoms appear more consistent with a viral gastroenteritis. She complains of malaise as well as vomiting and diarrhea that appeared to have resolved. She denied any focal neurologic deficits other than feeling of cramping in the left upper extremity. On physical examination she has no deficits on exam. Speech is intact. Sensation is intact globally. Power is intact in all extremities. Recommend monitoring patient overnight in the hospital. Recommend IV hydration. Obtain records of imaging and workup done recently. Obtain MRI of the brain as recommended by the neurology service. Continue her chronic ventricular ablation therapy.
--- NOTE | 2018-04-29 12:32 | Cons- Neurology ---
General Information and HPI Consulting Request Date of Consult: 04/29/18 Requested By: Nuha Nieves MD Reason for Consult: Paresthesias left arm Source of Information: patient Exam Limitations: no limitations History of Present Illness: 27 year old patient presented to ER with one day of general malaise, blurry vision then later on an "aching" feeling in the left forearm and hand (not leg or face and different from symptoms 2 weeks ago, (see below) History dates from a D&C in late January, then a pulmonary embolus in February for which she is on Eliquis. Since then she feels different, less energetic, not sleeping well, and she admitted somewhat down or cespedes. Two weeks ago presented to [facility] with numbness and weakness of right arm and leg which started to improve rapidly but took several days to clear. She says she was told the 2 CT scans and the MRI with and without dye were normal. Discharged again on full anticoagulation. Working single mother wth 5 children home Allergies/Medications Allergies: Coded Allergies: latex (HIVES, SWELLING, DYSPNEA 04/24/17) Home Med List: Albuterol Sulfate 2.5 MG/3 ML (0.083 %) VIAL.NEB 1 Vial INH/DUGLAS Q4P PRN ASTHMA Albuterol Sulfate (Proair Hfa) 90 MCG HFA.AER.AD 2 PUF INH Q4-6 PRN PRN ASTHMA . Apixaban (Eliquis) 5 MG TABLET 10 MG PO BID pulmonary embolism Take 10 mg twice daily until 03/01/18. Then 5 mg twice daily thereafter. Ferrous Sulfate 325 MG (65 MG IRON) TABLET.DR 325 MG PO BID iron deficiency . Metformin HCl 500 MG TABLET 1 TAB PO BID DM (Reported) Oxycodone HCl/Acetaminophen (Percocet 5-325 MG Tablet) 5 MG-325 MG TABLET 2 TAB PO Q6P PRN PAIN SCALE 7-10 (SEVERE) Current Medications: Current Medications Sig/Ashtyn Start time Last Medication Dose Route Stop Time Status Admin Aspirin Buffered 81 MG DAILY 04/29 0900 AC PO Insulin Aspart 0 TIDAC 04/29 1200 AC SC Review of Systems Review of Systems: C/O dry heaves, no diplopia but does have blurring or difficulty focusing. denies headache, change in voice or speech, symptoms involving face, No cardiac, respiratory symptoms or , no lateralized weakness or leg symptoms. Past History Travel History Traveled to [place] past 21 day No Medical History Neurological: NONE EENT: NONE Cardiovascular: NONE Respiratory: NONE Gastrointestinal: NONE Hepatic: NONE Renal: NONE Musculoskeletal: NONE Psychiatric: NONE Endocrine: NIDDM Blood Disorders: PE, NA Cancer(s): NA Surgical History Surgical History: Psychosocial History Where Do You Live? Home Who Do You Live With? BF Services at Home: None Primary Language: Czech Smoking Status: Light Tobacco Smoker ETOH Use: occasional use Illicit Drug Use: denies illicit drug use Functional Ability ADLs Independent: dressing, eating, toileting, bathing. Ambulation: independent IADLs Independent: shopping, housework, finances, food prep, telephone, transportation , medication admin. 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 Exam & Diagnostic Data Vital Signs and I&O Vital Signs Date Time Temp Pulse Resp B/P B/P Pulse O2 O2 Flow FiO2 Mean Ox Delivery Rate 04/29 1007 98.1 80 18 110/63 98 Room Air Room Air 04/29 0630 Room Air 04/29 0552 98.4 87 18 110/73 98 Room Air Intake & Output 04/29 1600 04/29 0800 04/29 0000 Intake Total 0 Output Total Balance 0 Intake, Oral 0 Patient 152 lb Weight Physical Exam: Looks tired but in good condition neck supple alert, oriented, mental status, language and speech normal VFF, EOMI, P4ERRL, fundi normal lower CN normal motor: no drift, 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 no ataxia, sensation normal bilat DTRs normal and symmetric, no pathological signs Last 48 Hours of Lab Results: Laboratory Tests 04/29 04/29 0832 0620 Chemistry Sodium (137 - 145 mmol/L) 138 Potassium (3.5 - 5.1 mmol/L) 3.9 Chloride (98 - 107 mmol/L) 106 Carbon Dioxide (22 - 30 mmol/L) 22 Anion Gap (5 - 16) 9 BUN (7 - 17 mg/dL) 14 Creatinine (0.5 - 1.0 mg/dL) 0.8 Estimated GFR (>60 ml/min) > 60 BUN/Creatinine Ratio (7 - 25 %) 17.5 Glucose (65 - 99 mg/dL) 109 H Calcium (8.4 - 10.2 mg/dL) 9.7 Total Bilirubin (0.2 - 1.3 mg/dL) 0.3 AST (14 - 36 U/L) 21 ALT (9 - 52 U/L) 28 Alkaline Phosphatase (<127 U/L) 57 Total Protein (6.3 - 8.2 g/dL) 7.7 Albumin (3.5 - 5.0 g/dL) 4.2 Globulin (1.9 - 4.2 gm/dL) 3.5 Albumin/Globulin Ratio (1.1 - 2.2 %) 1.2 Triglycerides (<150 mg/dL) 62 Cholesterol (<200 MG/DL) 176 LDL Cholesterol, Calc (65 - 129 mg/dL) 106 HDL Cholesterol (40 - 60 mg/dL) 58 Cholesterol/HDL Ratio (0.00 - 4.23 %) 3 TSH &T3 &Free T4 Intrp (0.270 - 4.20 uIU/mL) Pending Total Beta HCG (NEGATIVE) NEGATIVE Coagulation PT (9.4 - 12.5 SEC) 11.0 INR (0.90 - 1.19) 1.01 APTT (25 - 37 SEC) 30 Hematology CBC w Diff NO MAN DIFF REQ WBC (4.8 - 10.8 /CUMM) 7.3 RBC (4.20 - 5.40 /CUMM) 4.39 Hgb (12.0 - 16.0 G/DL) 11.8 L Hct (37 - 47 %) 35.7 L MCV (81.0 - 99.0 FL) 81.3 MCH (27.0 - 31.0 PG) 26.9 L MCHC (33.0 - 37.0 G/DL) 33.1 RDW (11.5 - 14.5 %) 23.9 H Plt Count (130 - 400 /CUMM) 319 MPV (7.4 - 10.4 FL) 8.4 Gran % (42.2 - 75.2 %) 59.4 Lymphocytes % (20.5 - 51.1 %) 31.4 Monocytes % (1.7 - 9.3 %) 7.6 Eosinophils % (0 - 5 %) 0.9 Basophils % (0.0 - 2.0 %) 0.7 Absolute Granulocytes (1.4 - 6.5 /CUMM) 4.3 Absolute Lymphocytes (1.2 - 3.4 /CUMM) 2.3 Absolute Monocytes (0.10 - 0.60 /CUMM) 0.6 Absolute Eosinophils (0.0 - 0.7 /CUMM) 0.1 Absolute Basophils (0.0 - 0.2 /CUMM) 0.1 Imaging/Other Studies: no recent Assessment/Plan Assessment: Aching in left forearm, different from symptoms 2 weeks ago [address] [facility], but raised patient's concern Hx suggestive of stroke/TIA but with reportedly negative findings, occured while anticoagulated General malaise since the D&C and PE, I suspect anxiety about health/depression, she asks if due to the eliquis. No objective neurological deficit at this time Recommendations: MRI brain without morales Obtain record of eval at [facility] if not already done should have hematological w/u for cause of PE and possible cerebrovascular embolic event. I suggested psychologic evaluation but she is declining Consult Acknowledgment - Thank you for your consult request.
[2018-04-29 14:43] VITALS: BP 108/72
--- NOTE | 2018-04-29 17:32 | ECHOCARDIOGRAM REPORT ---
SAUL LOVELACE Age: 27 : 1990 Gender: F Exam Date: 04/29/2018 11:56 Exam Location: ER Ht (in): 62 Wt (lb): 152 BSA: 1.76 BP: 110 / 63 Ordering Physician: Jeanine Vivas MD Referring Physician: Jeanine Vivas MD Technologist: Damien Washington HEATHER Room Number: 6 Indications: Stroke Rhythm: Technical Quality: Good FINDINGS Left Ventricle Normal left ventricular size, wall thickness and systolic function with no obvious regional wall motion abnormalities. Normal left ventricular diastolic filling pattern for age. The ejection fraction is visually estimated at >65 %. Right Ventricle The right ventricle is normal in size and function. Right Atrium The right atrium is normal in size. Left Atrium The left atrium is normal in size. The interatrial septum is intact. Mitral Valve The mitral valve is normal in structure and function. There is no mitral regurgitation. Aortic Valve Structurally normal aortic valve without significant sclerosis or stenosis. There is no aortic regurgitation. Tricuspid Valve The tricuspid valve is normal in structure and function. There is trace to mild tricuspid regurgitation. Pulmonary artery systolic pressure is normal. Pulmonic Valve Structurally normal pulmonic valve. There is no pulmonic regurgitation. Pericardium Normal pericardium without effusion. No pleural effusion. Great Vessels Normal aortic root dimension. The aortic arch and great vessels are well seen and are normal. CONCLUSIONS No significant chamber abnormalities. No significant valve abnormalities. Normal transthoracic echocardiogram. Physiologic valvular regurgitation. Torin Harrison M.D. (Electronically Signed) Final Date: 29 April 2018 17:29 MEASUREMENTS (Male / Female) Normal Values 2D ECHO LV Diastolic Diameter PLAX 4.3 cm 4.2 - 5.9 / 3.9 - 5.3 cm LV Systolic Diameter PLAX 3.2 cm 2.1 - 4.0 cm LV Fractional Shortening PLAX 25.6 % 25 - 46 % LV Ejection Fraction 2D Teich 50.7 % IVS Diastolic Thickness 0.9 cm LVPW Diastolic Thickness 0.9 cm LV Relative Wall Thickness 0.4 RV Internal Dim ED PLAX 2.1 cm 1.9 - 3.8 cm LVOT Diameter 1.7 cm Aortic Root Diameter 2.6 cm LA Systolic Diameter LX 2.4 cm 3.0 - 4.0 / 2.7 - 3.8 cm Ascending Aorta Diameter 2.3 cm DOPPLER AV Peak Velocity 119.0 cm/s AV Peak Gradient 5.7 mmHg AV Mean Velocity 82.3 cm/s AV Mean Gradient 3.0 mmHg AV Velocity Time Integral 23.0 cm LVOT Peak Velocity 90.2 cm/s LVOT Peak Gradient 3.3 mmHg LVOT Mean Velocity 58.1 cm/s LVOT Mean Gradient 2.0 mmHg LVOT Velocity Time Integral 17.3 cm LVOT Stroke Volume 39.3 cm AV Area Cont Eq vti 1.7 cm AV Area Cont Eq pk 1.7 cm MV Peak Velocity 66.2 cm/s MV Peak Gradient 1.8 mmHg MV Mean Velocity 46.2 cm/s MV Mean Gradient 1.0 mmHg Mitral E Point Velocity 59.7 cm/s Mitral A Point Velocity 42.4 cm/s Mitral E to A Ratio 1.4 MV PHT Velocity 66.5 cm/s MV Deceleration Hamblen 298.0 cm/s MV Pressure Half Time 66.9 ms MV Area PHT 3.3 cm MV Deceleration Time 289.0 ms TR Peak Velocity 198.0 cm/s TR Peak Gradient 15.7 mmHg Right Atrial Pressure 5.0 mmHg Pulmonary Artery Systolic Pressure 20.7 mmHg Right Ventricular Systolic Pressure 20.7 mmHg PV Peak Velocity 92.4 cm/s PV Peak Gradient 3.4 mmHg PV Mean Velocity 64.4 cm/s PV Mean Gradient 2.0 mmHg PV Velocity Time Integral 21.9 cm LV E' Lateral Velocity 10.4 cm/s Mitral E to LV E' Lateral Ratio 5.7 LV E' Septal Velocity 8.3 cm/s Mitral E to LV E' Septal Ratio 7.2
[2018-04-29 21:30] VITALS: BP 104/58
[2018-04-30 06:42] VITALS: BP 100/60
--- NOTE | 2018-04-30 07:59 | PN- Housestaff ---
Roly Cheema 04/30/18 0759: Subjective Follow-up For: Left upper extremity weakness Subjective: Overnight patient was in sinus rhythm heart rate ranged from 60-90. Patient denies any episodes of diarrhea, states she had one regular bowel movement yesterday. Denies fever, night sweats, chills. States left arm feels achy and sore instead of tingling and numbness. Review of Systems Constitutional: Denies: chills, diaphoresis, fever. Cardiovascular: Denies: chest pain, palpitations. Respiratory: Denies: cough, short of breath. Gastrointestinal: Denies: abdominal pain, diarrhea, bowel incontinence. Objective Last 24 Hrs of Vital Signs/I&O Vital Signs Date Time Temp Pulse Resp B/P B/P Pulse O2 O2 Flow FiO2 Mean Ox Delivery Rate 04/30 0642 98.3 70 20 100/60 98 Room Air 04/29 2130 97.8 72 18 104/58 97 Room Air 04/29 1542 Room Air 04/29 1443 98.2 81 20 108/72 99 Room Air 04/29 1407 98.5 73 18 105/60 97 Room Air Room Air 04/29 1406 98.7 81 18 110/63 97 Room Air Room Air Intake & Output 04/30 1600 04/30 0800 04/30 0000 Intake Total 1285 Output Total 450 Balance 835 Intake, IV 10 Intake, Oral 1275 Output, 250 Emesis Output, Urine 200 Physical Exam General Appearance: Alert, Oriented X3, Cooperative Cardiovascular: Regular Rate, Normal S1, Normal S2 Lungs: Clear to Auscultation, Normal Air Movement Abdomen: Normal Bowel Sounds, Soft, No Tenderness Neurological: Normal Gait, Normal Speech, Strength at 5/5 X4 Ext, Sensation Intact, Cranial Nerves 3-12 NL Extremities: No Cyanosis, No Edema, Normal Pulses Current Medications: Current Medications Sig/Ashtyn Start time Last Medication Dose Route Stop Time Status Admin Apixaban 5 MG BID 04/29 1324 DCD 04/30 PO 0944 Aspirin Buffered 81 MG DAILY 04/29 0900 DCD PO Ferrous Sulfate 325 MG BID 04/29 1324 DCD 04/30 PO 0944 Insulin Aspart 0 TIDAC 04/29 1200 DCD SC Metoclopramide HCl 10 MG ONCE ONE 04/30 0015 DC 04/30 IV 04/30 0016 0122 Metoclopramide HCl 0 .STK-MED ONE 04/30 0012 DC .ROUTE Ondansetron HCl 0 .STK-MED ONE 04/290 DC PO Ondansetron HCl 4 MG ONCE ONE 04/29 2230 DC 04/29 PO 04/29 Sodium Chloride 1,000 ML Q13H 04/29 1545 DCD 04/30 IV 0129 Last 24 Hrs of Lab/Timothy Results Last 24 Hrs of Labs/Mics: Laboratory Tests 04/30/18 0625: Anion Gap 7, Estimated GFR > 60, BUN/Creatinine Ratio 18.8, CBC w Diff NO MAN DIFF REQ, RBC 4.33, MCV 81.6, MCH 26.7 L, MCHC 32.8 L, RDW 23.3 H, MPV 8.8, Gran % 47.1, Lymphocytes % 44.0, Monocytes % 7.3, Eosinophils % 0.9, Basophils % 0.7, Absolute Granulocytes 2.7, Absolute Lymphocytes 2.5, Absolute Monocytes 0.4 , Absolute Eosinophils 0.1, Absolute Basophils 0 Assessment/Plan Assessment: Ms. Coley is a 27-year-old female, A2 (D&C 2), ryn-[id number] diabetes mellitus (diagnosed in 2015), asthma, previous provoked pulmonary emboli after D&C at 10 weeks of gestational age (February 2018) admitted to [facility] 02/21/2018 for left-sided chest pain when she was found to have a left lower lobe PE, discharged on Eliquis with recent admission to [facility] for suspected stroke 2 weeks prior to today's presentation, was brought in by ambulance with chief complaint of left upper extremity weakness, tingling and numbness associated with initial episode of feeling funny, palpitations, 4 episodes of loose watery diarrhea followed by generalized weakness 6 hours prior to presentation around 5 AM on the morning of 04/29/2018. Problem list: 1. Left upper extremity weakness 2. Nausea #Left upper extremity weakness: Patient's history and presenting symptoms of left upper extremity weakness, tingling and numbness produced a picture of a possible TIA or CVA as the cause of current left upper extremity weakness. Patient was recently hospitalized at [facility] approximately 2 weeks ago with right lower extremity weakness, tingling and numbness all workup including head CT and MRI were negative. Patient was evaluated by neurology who recommended MRI of the brain without gadolinium. -MRI was negative for TIA or CVA. fraction greater than 65% numbness type of pain in left arm on physical examination patient exhibited normal strength in bilateral upper extremities intact sensation. #Iron deficiency anemia Ferrous sulfate 325 mg p.o. every 48 hours #Nausea CODE STATUS: Full code Diet: regular diet DVT prophylaxis: Eliquis Patient will be discharged home today as MRI is negative, instructed patient to follow PCP and neurologist. Problem List: 1. Weakness of left upper extremity Pain Ratin Pain Location: n/a Pain Goal: Remain pain free Pain Plan: n/a Tomorrow's Labs & Rationales: none Twan Johns MD 04/30/18 1348: Attending MD Review Statement Attending Statement Attending MD Statement: examined this patient, discuss w/resident/PA/COPIER FIELD SERVICE TECHNICIAN, agreed w/resident/PA/COPIER FIELD SERVICE TECHNICIAN, reviewed EMR data (avail), discussed with nursing, discussed with case mgmt, amended to note Attending Assessment/Plan: Patient seen and examined. Resting comfortably and not in any today she reports feeling back to baseline. She declined evaluation by the occupational therapist. On examination she has no neurologic deficit. She had some episodes of vomiting yesterday but this has resolved. Denies any further diarrhea. Her malaise appears to be secondary to a viral gastroenteritis. She has no neurologic deficits to suggest that she has experienced a stroke. MRI done today showed no acute pathology. She is medically stable to be discharged today and has been advised to follow-up with her primary care provider as an outpatient.
[2018-04-30 08:08] LABS: ABSOLUTE BASOPHIL COUNT 0 /CUMM (0.0-0.2); ABSOLUTE EOSINOPHIL COUNT 0.1 /CUMM (0.0-0.7); ABSOLUTE GRANULOCYTE CT 2.7 /CUMM (1.4-6.5); ABSOLUTE LYMPH COUNT 2.5 /CUMM (1.2-3.4); ABSOLUTE MONOCYTE COUNT 0.4 /CUMM (0.10-0.60); BASOPHIL % 0.7 % (0.0-2.0); EOSINOPHIL % 0.9 % (0-5); GRANULOCYTE % 47.1 % (42.2-75.2); HEMATOCRIT 35.3 % (37-47); MEAN CORPUSCULAR HGB 26.7 PG (27.0-31.0); MEAN CORPUSCULAR HGB CONC 32.8 G/DL (33.0-37.0); MEAN CORPUSCULAR VOLUME 81.6 FL (81.0-99.0); MEAN PLATELET VOLUME 8.8 FL (7.4-10.4); PLATELET COUNT 296 /CUMM (130-400); RBC DISTRIBUTION WIDTH 23.3 % (11.5-14.5); RED BLOOD CELL CT 4.33 /CUMM (4.20-5.40); WHITE BLOOD CELL COUNT 5.7 /CUMM (4.8-10.8)
--- NOTE | 2018-04-30 11:26 | MRI REPORT ---
EXAMINATION: MR BRAIN WITHOUT CONTRAST CLINICAL INFORMATION: Left hand weakness and tingling/numbness. Assess for stroke. COMPARISON: None. TECHNIQUE: MRI of the brain without contrast was obtained using routine sequences. FINDINGS: No diffusion abnormalities are identified to suggest an acute or subacute infarct. No mass effect or midline shift is seen. The ventricles are normal in size. Brain parenchymal signal is unremarkable. No extra-axial fluid collections are seen. The brainstem and cerebellum are normal. No pathologic magnetic susceptibility artifact is identified on the gradient refocused acquisition. The craniovertebral junction, marrow signal, and midline structures are normal. The major intracranial flow-voids at the level of the [place] are preserved. The dural venous sinus flow-voids are maintained. The mastoid air cells and paranasal sinuses are well-aerated. IMPRESSION: 1. There are no acute bleeds or infarcts. No masses are demonstrated.
[2018-04-30] MEDS ORDERED: FERROUS SULFAT325 M2 PO (11:51)
--- NOTE | 2018-04-30 11:58 | Patient Discharge Instructions ---
Discharge Instructions General Discharge Information You were seen/treated for: Left upper extremity weakness You had these procedures: No procedures were performed during current hospitalization Watch for these problems: Fever, chest pain, palpitation, shortness of breath Special Instructions: FOLLOW UP WITH PCP AND NEUROLOGIST Diet Continue normal diet: Yes Recommended Diet: Regular Activity Full Activity/No Limits: Yes Acute Coronary Syndrome Inclusion Criteria At DC or during hospital stay patient has or had the following: ACS DIAGNOSIS No Discharge Core Measures Meds if any: Prescribed or Continued at Discharge Meds if any: NOT Prescribed or Continued at Discharge Congestive Heart Failure Inclusion Criteria At DC or during hospital stay patient has or had the following: CHF DIAGNOSIS No Discharge Core Measures Meds if any: Prescribed or Continued at Discharge Meds if any: NOT Prescribed or Continued at Discharge Cerebrovascular accident Inclusion Criteria At DC or during hospital stay patient has or had the following: CVA/TIA Diagnosis No Discharge Core Measures Meds if any: Prescribed or Continued at Discharge Meds if any: NOT Prescribed or Continued at Discharge Venous thromboembolism Inclusion Criteria VTE Diagnosis No VTE Type NONE VTE Confirmed by (Test) NONE Discharge Core Measures - Per Current guidelines, there needs to be overlap - treatment for the first 5 days of Warfarin therapy. - If discharged on Warfarin prior to 5 days of - overlap therapy, the patient will need to be - assessed for post discharge needs including - *Post discharge parental anticoagulation - *Warfarin and/or parental anticoagulation education - *Follow up date to check INR post discharge At least 5 days overlap therapy as Inpatient No Meds if any: Prescribed or Continued at Discharge Note: Overlap Therapy is Warfarin and Anticoagulant Meds if any: NOT Prescribed or Continued at Discharge
== END 2018-04-30 13:40 ==
LOC: ERH 05:42 → 1NO 07:15 → ERHI 07:15 → EDBEDREQ 07:31 → ENRESERV 11:58 → ENTRNSPT 13:47 → EDTRNSPTSTS 14:04 → EDTRNSPT 14:04 → CMPTRNSPT 14:17 → 1NO 14:21 → ENPENDDIS 04-30 12:01 → ENTRNSPT 04-30 13:18 → EDTRNSPTSTS 04-30 13:29 → EDTRNSPT 04-30 13:29 → CMPTRNSPT 04-30 13:37 → 1NO 04-30 13:40
PROVIDERS: Internal Medicine; Student in an Organized Health Care Education/Training Program
DX: R53.1 Weakness (principal); A08.4 Viral intestinal infection, unspecified; D50.9 Iron deficiency anemia, unspecified; E11.9 Type 2 diabetes mellitus without complications; Z79.84 Long term (current) use of oral hypoglycemic drugs; F17.200 Nicotine dependence, unspecified, uncomplicated; J45.909 Unspecified asthma, uncomplicated; Z86.711 Personal history of pulmonary embolism; Z79.01 Long term (current) use of anticoagulants; Z79.899 Other long term (current) drug therapy
CPT/HCPCS: 1NP; 6020; 70551; 36592; 82436; 93005; 93010; 93306; 96374; 99291; G0378; J2765; J3101